=== PATIENT | male | born 1940 | race Caucasian/White ===

== ENCOUNTER 2022-04-27 23:32 | Inpatient (IN) ==
[2022-04-27] MEDS ORDERED: ACETAMINOPHEN 1,000 MG/100 ML BAG IV ONE (23:56)
[2022-04-27] MEDS ORDERED: IPRATROPIUM/ALBUTEROL 3 ML AMPUL.NEB NEB ONE (23:57)
[2022-04-28] MEDS ORDERED: CEFEPIME 2 GM VIAL IV ONE (00:14)
[2022-04-28] MEDS ORDERED: 0.9 % SODIUM CHLORIDE 500 ML IV ONE ×2 (00:14→02:02)
[2022-04-28] MEDS ORDERED: VANCOMYCIN 1,000 MG in 0.9 % SODIUM CHLORIDE 250 ML IV ONE (00:14)
[2022-04-28] MEDS: 0.9 % SODIUM CHLORIDE 250 ML ONE ×2 (00:25→00:38)
[2022-04-28 01:07] LABS: Basophils # (Auto) 0.03 K/mcL (0.00-0.30); Basophils % (Auto) 0.3 % (0.0-2.0); Eosinophils # (Auto) 0.05 K/mcL (0.00-0.70); Eosinophils % (Auto) 0.5 % (0.0-7.0); Hemoglobin 12.1 g/dL (13.7-17.5); Lymphocytes # (Auto) 0.71 K/mcL (1.50-4.80); Lymphocytes % (Auto) 7.6 % (15.5-49.0); Mean Cell Volume 90.3 fL (80.0-100.0); Mean Corpuscular HGB Conc 31.8 g/dL (31.0-36.0); Mean Platelet Volume 11.3 fL (8.8-12.5); Monocytes # (Auto) 0.71 K/mcL (0.10-0.90); Monocytes % (Auto) 7.6 % (1.0-12.0); Neutrophils % (Auto) 83.6 % (38.0-78.0); Platelet Count 173 K/mcL (140-440); RBC 4.21 M/mcL (4.63-6.08); Red Cell Distribution Width 14.6 % (11.5-14.5); WBC 9.3 K/mcL (4.5-11.0)
[2022-04-28 01:23] LABS: proBNP 516.1 pg/mL (<450.0)
[2022-04-28 01:52] LABS: ALT/SGPT 22 U/L (<40); AST/SGOT 31 U/L (<40); Albumin 3.8 gm/dL (3.2-5.2); Albumin/Globulin Ratio 1.1 (1.0-2.3); Alkaline Phosphatase 158 U/L (39-117); Bilirubin,Total 0.9 mg/dL (0.1-1.0); Blood Urea Nitrogen 52 mg/dL (8-23); Calcium 9.5 mg/dL (8.6-10.4); Carbon Dioxide 28 mmol/L (22-30); Chloride 93 mmol/L (96-108); Globulin 3.4 gm/dL (2.2-3.7); Glomerular Filtration Rate 40; Glucose 111 mg/dL (70-105)
[2022-04-28] MEDS ORDERED: VANCOMYCIN PER PHARMACY IV ONE (02:21)
[2022-04-28] MEDS ORDERED: ACETAMINOPHEN 325 MG TABLET PO PRN ×2 (02:22→09:12)
[2022-04-28] MEDS ORDERED: ONDANSETRON 4 MG/2 ML VIAL IV PRN ×2 (02:22→09:12)
[2022-04-28 02:23] LABS: POC INR 2.8 (0.8-1.2); POC Pro Time 31.5 (11.9-14.5)
[2022-04-28] MEDS ORDERED: IPRATROPIUM/ALBUTEROL 3 ML AMPUL.NEB NEB ONE (02:37)
[2022-04-28] MEDS: IPRATROPIUM/ALBUTEROL 3 ML AMPUL.NEB NEB SCH ×6 (05:26→23:50)
--- NOTE | 2022-04-28 06:34 | Emergency Department Note ---
Fever HPI General Chief Complaint: Fever Stated Complaint: SOB/fever Time Seen by Provider: 04/27/22 23:35 Source: patient and EMS Mode of arrival: EMS Limitations: no limitations History of Present Illness HPI Narrative: Narrative: 81-year-old male with a history of cardiomyopathy, COPD/asthma, A-fib presenting to the ED from [place] for shortness of breath wheezing and fever. Shortness of breath and wheezing started today, EMS reports he was hypoxic in the 80s with diffuse wheezing when they arrived, they gave him a DuoNeb which improved up into the 90s and was given 125 mg IV Solu-Medrol and brought to the ER. Patient says he has had mild URI symptoms for couple days as well. No chest pain. No abdominal pains or genitourinary symptoms. Always has a little bit of leg swelling he says but seems unchanged. He is on Coumadin as well. No other complaints says he does feel a bit better after the breathing treatments. He is not on home oxygen at baseline currently on 3 L nasal cannula Related Data Previous Rx's Medication Instructions Recorded Ventolin HFA 90 mcg/actuation 2 puff inhalation Q6H PRN 05/03/21 aerosol inhaler (albuterol sulfate) shortness of breath or wheezing #18 grams enalapril maleate 10 mg tablet 10 mg PO QDAY #90 tabs 07/15/21 furosemide 20 mg tablet 20 mg PO BID #180 tabs 09/16/21 tiotropium 2.5 mcg-olodaterol 2.5 2 puff inhalation Q24H #4 grams 09/18/21 mcg/actuation mist for inhalation (Stiolto Respimat) calcium carbonate 500 mg calcium 500 mg PO BID #180 tabs 11/05/21 (1,250 mg) tablet (Oyster Shell Calcium) ferrous sulfate 325 mg (65 mg 325 mg PO QDAY #90 tabs 11/07/21 iron) tablet (FeroSul) carvedilol 12.5 mg tablet (Coreg) 12.5 mg PO BID #180 tabs 11/12/21 quetiapine 25 mg tablet (Seroquel) 25 mg PO BID #180 tabs 11/21/21 warfarin 5 mg tablet 7.5 mg PO QDAY 90 days #135 tabs 01/07/22 sitagliptin phosphate 50 mg tablet 50 mg PO QDAY #90 tabs 02/06/22 (Januvia) citalopram 20 mg tablet (Celexa) 20 mg PO QDAY #90 tabs 03/04/22 atorvastatin 20 mg tablet (Lipitor) 20 mg PO QHS #90 tabs 03/13/22 allopurinol 100 mg tablet See Rx Instructions .Route 03/18/22 .COMPLEX #90 tabs ipratropium bromide 17 2 puff inhalation TID PRN 03/18/22 mcg/actuation HFA aerosol inhaler shortness of breath or wheezing (Atrovent HFA) #12.9 grams fluticasone propionate 100 1 inh inhalation BID #60 ea 04/01/22 mcg/actuation blister powder for inhalation (Flovent Diskus) warfarin 2.5 mg tablet 2.5 mg PO .COMPLEX #90 tabs 04/08/22 acetaminophen 500 mg tablet 500 mg PO Q6H PRN for pain #30 tabs 04/17/22 Allergies Allergy/AdvReac Type Severity Reaction Status Date / Time No Known Drug Allergies Allergy Verified 04/28/22 03:36 Review of Systems ROS ROS Narrative: Narrative: All systems ED: reviewed and negative except as stated. PFSH Narrative Patient History Narrative: Narrative: Medical/Surgical/Family History All Active Problems Pneumonia (Acute) Fever (Acute) Acute exacerbation of chronic obstructive pulmonary disease (Acute) COPD (chronic obstructive pulmonary disease) (Acute) correction current use of anticoagulant therapy (Chronic) Aspiration pneumonitis (Chronic) Atrial fibrillation (Chronic) Cardiomyopathy, primary (Chronic) Cataract (Chronic) Cellulitis and abscess of toe (Chronic 04/12/14) Hx of gout (Chronic) Gouty arthropathy (Chronic) Fracture, humerus closed (Chronic) Hyperlipidemia (Chronic) Hyperplasia of prostate (Chronic) Hypertension, essential, benign (Chronic) Onychomycosis (Chronic) Hx of adenoidectomy (Acute) History of surgery on arm (Acute) Hx of tonsillectomy (Acute) Hx of hernia repair (Acute) Chronic pain of left knee (Chronic) Diabetic foot ulcer (Chronic) 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) 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) Diabetic neuropathy (Chronic) Pes planus (Chronic) Hallux valgus (Chronic) Hallux rigidus of right foot (Chronic) Hammertoe (Chronic) Acquired deformity of left toe (Chronic) Skin fissure (Chronic) 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) Foot callus (Chronic) Onychomycosis of toenail (Chronic) Hypertension (Chronic) Congestive heart failure (Chronic) Cardiomyopathy (Chronic) Depression (Chronic) Knee pain, right (Chronic) Neurogenic bladder (Acute) Bladder incontinence (Acute) Facial rash (Chronic) Chronic skin ulcer (Chronic) Bilateral knee pain (Chronic) Elevated erythrocyte sedimentation rate (Chronic) High risk medication use (Chronic) Encounter for long-term (current) use of high-risk medication (Chronic) Osteoarthritis (Acute) MGUS (monoclonal gammopathy of unknown significance) (Chronic) Hyperphosphatemia (Acute) Edema (Chronic) Hypertension in stage 3 chronic kidney disease due to type 2 diabetes mellitus (Chronic) Localized edema due to fluid overload (Chronic) Medicare annual wellness visit, initial (Acute) BPH associated with nocturia (Acute) Annual physical exam (Acute) Dyspnea (Acute) Chronic kidney disease (CKD) stage G3b/A2, moderately decreased glomerular filtration rate (GFR) between 30-44 mL/min/1.73 square meter and albuminuria creatinine ratio between 30-299 mg/g (Chronic) 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) Medical History Acquired deformity of left toe Annual physical exam Aspiration pneumonitis Atrial fibrillation Bilateral knee pain Bladder incontinence BPH associated with nocturia Cardiomyopathy Cardiomyopathy, primary ETOH caused Cataract Cellulitis and abscess of toe (04/12/14) Chronic pain of left knee Chronic skin ulcer Congestive heart failure Depression Diabetes Diabetes insipidus Diabetes mellitus with neurological manifestations Diabetes mellitus, type II Diabetic foot ulcer Toe Diabetic neuropathy DM (diabetes mellitus), type 2 with renal complications Dyspnea Elevated erythrocyte sedimentation rate Encounter for long-term (current) use of high-risk medication Facial rash Foot callus Bilateral Fracture, humerus closed L Gouty arthropathy Hallux rigidus of right foot Hallux valgus Hammertoe High risk medication use Hx of gout Hyperlipidemia Hyperplasia of prostate Hypertension Hypertension, essential, benign 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 Wood Onychomycosis of toenail Osteoarthritis Pes planus Renal cysts, acquired, bilateral Per renal ultrasound 07/02/2015 Skin fissure Type II diabetes mellitus with renal manifestations Surgical History History of amputation of lesser toe of right foot History of mastoidectomy History of surgery on arm Left-elbow/bicept/tricept Hx of adenoidectomy Hx of hernia repair L Hx of tonsillectomy Family History Father Multiple myeloma at 80y Malignant neoplasm Mother Coronary artery disease at 85 y Cardiac disease Essential hypertension Cerebrovascular accident (CVA) Brother Hypertension Congestive heart failure Sister Tachycardia Brother Diabetes insipidus Other Diabetes mellitus Social History Smoking Status: Never smoker Alcohol Intake Frequency: former alcohol drinker Substance Use: does not use Exam Narrative Narrative: Narrative: Constitutional: normally developed, a bit labored, requiring nasal cannula slight tachycardia Head: Normocephalic, atraumatic, Eyes: No Icterus, ENT: Moist mucus membranes, normal oropharynx slightly boggy turbinates Neck: Supple, no meningismus Cardiac: Tachycardic irregular heart sounds, palpable peripheral pulses, trace equal peripheral edema Pulmonary: diminished bilateral crackles and wheeze Gastrointestinal: Abdomen soft, non-distended, non-tender, Musculoskeletal: No gross deformities, well perfused Skin: warm, dry Neuro: Alert and oriented. General Limitations: no limitations Course Vital Signs Vital signs: Vital Signs Temperature 38.8 C H 04/27/22 23:33 Pulse Rate 98 H 04/27/22 23:33 Respiratory Rate 24 H 04/27/22 23:33 Blood Pressure 132/75 04/27/22 23:33 Pulse Oximetry (%) 93 04/27/22 23:33 Oxygen Delivery Method Nasal Cannula 04/27/22 23:33 Temperature 36.8 C 04/28/22 04:00 Pulse Rate 111 H 04/28/22 04:00 Respiratory Rate 20 04/28/22 04:00 Blood Pressure 126/75 04/28/22 04:00 Pulse Oximetry (%) 95 04/28/22 04:00 Oxygen Delivery Method Nasal Cannula 04/28/22 04:00 Oxygen Flow Rate (L/min) 2 04/28/22 04:00 [facility] MDM Narrative Medical decision making narrative: Narrative: Patient presents as above shortness of breath fevers and wheezing hypoxic at [facility]. Work-up is initiated. Consideration for pneumonia, pneumothorax, viral illness/pneumonia, bacterial infection/pneumonia, sepsis, COPD/asthma exacerbation, ACS, less likely PE or dissection. Patient given some further DuoNebs. Given IV Tylenol for fever. And further DuoNeb we started to give him slow judicious fluids for SIRS criteria given his history of cardiomyopathy CHF. Chest x-ray per my preliminary interpretation appears to show left lower opacity versus effusion Patient was covered with broad-spectrum antibiotics out of concern for pneumonia Vanc, cefepime CBC no leukocytosis, no severe anemia POC INR 2.8 on Coumadin Blood gas with no significant only mild hypercapnia pH 7.38 PCO2 of 51 PO2 on the venous gas 35 Lactic acid normal 1.1 Electrolytes with baseline CKD BNP mildly elevated 516 Troponin negative Twelve-lead EKG appears to show his known A-fib heart rate 88 no evidence of STEMI criteria, right bundle branch block pattern, no prior EKG for comparison COVID and flu negative Reevaluation patient is feeling better, we did slowly give him a total of 1 L IV fluids we will hold off on further fluids given his elevated BNP and history of cardiomyopathy and the fact his blood pressure is stable, heart rate is right around 100. Fever resolved is feeling better, he is weaned down to 1 to 2 L of nasal cannula. Still suspect possibly pneumonia viral versus bacterial, COPD exacerbation. Spoke with Dr. SAENZ who accepts the patient for telemetry admission. Did also add on Procal in the meantime Lab Data 04/28/22 00:07 04/28/22 00:03 Labs: Lab Results 04/28/22 04/28/22 04/28/22 Range/Units 00:03 00:03 00:05 WBC (4.5-11.0) K/mcL RBC (4.63-6.08) M/mcL Hgb (13.7-17.5) g/dL Hct (40.1-51.0) % MCV (80.0-100.0) fL MCH (26.0-34.0) pg MCHC (31.0-36.0) g/dL RDW (11.5-14.5) % Plt Count (140-440) K/mcL MPV (8.8-12.5) fL Immature Gran % (Auto) (0.0-0.5) % Neut % (Auto) (38.0-78.0) % Lymph % (Auto) (15.5-49.0) % [place] % (Auto) (1.0-12.0) % Eos % (Auto) (0.0-7.0) % Baso % (Auto) (0.0-2.0) % Lymph # (Auto) (1.50-4.80) K/mcL [place] # (Auto) (0.10-0.90) K/mcL Eos # (Auto) (0.00-0.70) K/mcL Baso # (Auto) (0.00-0.30) K/mcL Immature Gran # (0.00-0.05) K/mcl Absolute Neutrophils (1.80-8.00) K/mcL POC PT (11.9-14.5) POC INR (0.8-1.2) POC VBG pH (7.32-7.42) POC VBG pCO2 at Temp (41-51) POC VBG pO2 (25-40) POC VBG HCO3 (24-28) POC VBG Total CO2 (25-29) POC Venous O2 Sat (40-70) POC VBG Base Excess (-2-2) VBG Lactic Acid (0.5-2) Sodium 132 L (133-145) mmol/L Potassium 4.7 (3.3-5.1) mmol/L Chloride 93 L (96-108) mmol/L Carbon Dioxide 28 (22-30) mmol/L Anion Gap 11.0 (8.0-16.0) BUN 52 H (8-23) mg/dL Creatinine 1.6 H (0.7-1.2) mg/dL GFR Calculation 40 Glucose 111 H (70-105) mg/dL Calcium 9.5 (8.6-10.4) mg/dL Total Bilirubin 0.9 (0.1-1.0) mg/dL AST 31 (<40) U/L ALT 22 (<40) U/L Alkaline Phosphatase 158 H (39-117) U/L NT-Pro-B Natriuret Pep 516.1 H (<450.0) pg/mL Total Protein 7.2 (5.9-8.4) gm/dL Albumin 3.8 (3.2-5.2) gm/dL Globulin 3.4 (2.2-3.7) gm/dL Albumin/Globulin Ratio 1.1 (1.0-2.3) Procalcitonin (<0.10) ng/mL POC Troponin I 0.04 (0.00-0.08) 04/28/22 04/28/22 04/28/22 Range/Units 00:07 00:07 02:18 WBC 9.3 (4.5-11.0) K/mcL RBC 4.21 L (4.63-6.08) M/mcL Hgb 12.1 L (13.7-17.5) g/dL Hct 38.0 L (40.1-51.0) % MCV 90.3 (80.0-100.0) fL MCH 28.7 (26.0-34.0) pg MCHC 31.8 (31.0-36.0) g/dL RDW 14.6 H (11.5-14.5) % Plt Count 173 (140-440) K/mcL MPV 11.3 (8.8-12.5) fL Immature Gran % (Auto) 0.4 (0.0-0.5) % Neut % (Auto) 83.6 H (38.0-78.0) % Lymph % (Auto) 7.6 L (15.5-49.0) % [place] % (Auto) 7.6 (1.0-12.0) % Eos % (Auto) 0.5 (0.0-7.0) % Baso % (Auto) 0.3 (0.0-2.0) % Lymph # (Auto) 0.71 L (1.50-4.80) K/mcL [place] # (Auto) 0.71 (0.10-0.90) K/mcL Eos # (Auto) 0.05 (0.00-0.70) K/mcL Baso # (Auto) 0.03 (0.00-0.30) K/mcL Immature Gran # 0.04 (0.00-0.05) K/mcl Absolute Neutrophils 7.77 (1.80-8.00) K/mcL POC PT 31.5 H (11.9-14.5) POC INR 2.8 H (0.8-1.2) POC VBG pH 7.38 (7.32-7.42) POC VBG pCO2 at Temp 51.3 H (41-51) POC VBG pO2 35 (25-40) POC VBG HCO3 30.7 H (24-28) POC VBG Total CO2 32.0 H (25-29) POC Venous O2 Sat 65.0 (40-70) POC VBG Base Excess 6.0 H* (-2-2) VBG Lactic Acid 1.1 (0.5-2) Sodium (133-145) mmol/L Potassium (3.3-5.1) mmol/L Chloride (96-108) mmol/L Carbon Dioxide (22-30) mmol/L Anion Gap (8.0-16.0) BUN (8-23) mg/dL Creatinine (0.7-1.2) mg/dL GFR Calculation Glucose (70-105) mg/dL Calcium (8.6-10.4) mg/dL Total Bilirubin (0.1-1.0) mg/dL AST (<40) U/L ALT (<40) U/L Alkaline Phosphatase (39-117) U/L NT-Pro-B Natriuret Pep (<450.0) pg/mL Total Protein (5.9-8.4) gm/dL Albumin (3.2-5.2) gm/dL Globulin (2.2-3.7) gm/dL Albumin/Globulin Ratio (1.0-2.3) Procalcitonin (<0.10) ng/mL POC Troponin I (0.00-0.08) 04/28/22 Range/Units 02:23 WBC (4.5-11.0) K/mcL RBC (4.63-6.08) M/mcL Hgb (13.7-17.5) g/dL Hct (40.1-51.0) % MCV (80.0-100.0) fL MCH (26.0-34.0) pg MCHC (31.0-36.0) g/dL RDW (11.5-14.5) % Plt Count (140-440) K/mcL MPV (8.8-12.5) fL Immature Gran % (Auto) (0.0-0.5) % Neut % (Auto) (38.0-78.0) % Lymph % (Auto) (15.5-49.0) % [place] % (Auto) (1.0-12.0) % Eos % (Auto) (0.0-7.0) % Baso % (Auto) (0.0-2.0) % Lymph # (Auto) (1.50-4.80) K/mcL [place] # (Auto) (0.10-0.90) K/mcL Eos # (Auto) (0.00-0.70) K/mcL Baso # (Auto) (0.00-0.30) K/mcL Immature Gran # (0.00-0.05) K/mcl Absolute Neutrophils (1.80-8.00) K/mcL POC PT (11.9-14.5) POC INR (0.8-1.2) POC VBG pH (7.32-7.42) POC VBG pCO2 at Temp (41-51) POC VBG pO2 (25-40) POC VBG HCO3 (24-28) POC VBG Total CO2 (25-29) POC Venous O2 Sat (40-70) POC VBG Base Excess (-2-2) VBG Lactic Acid (0.5-2) Sodium (133-145) mmol/L Potassium (3.3-5.1) mmol/L Chloride (96-108) mmol/L Carbon Dioxide (22-30) mmol/L Anion Gap (8.0-16.0) BUN (8-23) mg/dL Creatinine (0.7-1.2) mg/dL GFR Calculation Glucose (70-105) mg/dL Calcium (8.6-10.4) mg/dL Total Bilirubin (0.1-1.0) mg/dL AST (<40) U/L ALT (<40) U/L Alkaline Phosphatase (39-117) U/L NT-Pro-B Natriuret Pep (<450.0) pg/mL Total Protein (5.9-8.4) gm/dL Albumin (3.2-5.2) gm/dL Globulin (2.2-3.7) gm/dL Albumin/Globulin Ratio (1.0-2.3) Procalcitonin 0.08 (<0.10) ng/mL POC Troponin I (0.00-0.08) ED POC Tests ED POC Tests: [place] - Influenza A Negative [place] - Influenza B Negative [place] - SARS Antigen Negative Discharge Plan Patient/Caregiver Discharge Instructions 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
--- NOTE | 2022-04-28 07:45 | XRay Report ---
HISTORY: Short of breath, fever, COPD FINDINGS: Right diaphragm is moderately elevated. This is a chronic stable finding of undetermined etiology. There is no apparent lung or mediastinal mass. There is a generalized haziness in the lung parenchyma bilaterally. Some of this may be due to crowding of normal pulmonary vascular markings. Pulmonary vascular congestion is less likely. There is a vague infiltrate in the left lower lobe behind the left heart border which is new since 07/17/20. There might be a small left-sided pleural effusion. Heart size is within upper limits of normal. IMPRESSION: Mild atelectasis or pneumonia in the left lower lobe Interpreted and Authenticated by: Sarmad Mullins 04/28/22
[2022-04-28] MEDS ORDERED: CEFEPIME 2 GM VIAL IV SCH (08:00)
[2022-04-28] MEDS ORDERED: ACETAMINOPHEN 500 MG TABLET PO PRN (09:08)
[2022-04-28] MEDS ORDERED: ALBUTEROL SULFATE 60 PUFF INHALER INH PRN (09:08)
[2022-04-28] MEDS ORDERED: traZODone HCL 50 MG TABLET PO PRN (09:12)
[2022-04-28] MEDS ORDERED: DEXTROSE 50% 50 ML VIAL IV PRN ×2 (09:12→09:18)
[2022-04-28] MEDS ORDERED: DEXTROSE 31 GM ORAL.SUSP PO PRN ×2 (09:12→09:18)
[2022-04-28] MEDS ORDERED: WARFARIN 2.5 MG TABLET PO SCH (09:15)
[2022-04-28] MEDS ORDERED: cefTRIAXone 1 GM in DEXTROSE 5% IN WATER 50 ML IV SCH (09:15)
[2022-04-28] MEDS ORDERED: guaiFENesin/DEXTROMETHORPHAN 5ML UD CUP PO PRN (09:22)
[2022-04-28] MEDS ORDERED: IPRATROPIUM BROMIDE 17 MCG INH PRN (09:27)
--- NOTE | 2022-04-28 09:30 | Internal Med History&Physical ---
HPI History of Present Illness Patient information: Note initiated : 04/28/22 at 9:18 am Service Date, if different from initiated Date: [] Patient: Shamar Vila 81 y/o M admitted on 04/28/22 for SOB/fever. Chief Complaint: [shortness of breath, cough] Chief complaint: shortness of breath, cough History of present illness: Mr. Vila is a 81 year old M history of gout, COPD, type 2 diabetes mellitus, chronic kidney disease stage III, essential hypertension, mixed dyslipidemia, atrial fibrillation, depressions, cardiomyopathy, presenting with 1 day history of new onset shortness of breath with cough. There was no prior similar episode. Patient is assisted living facility [facility] is state resident. Yesterday morning he woke up with acute onset shortness of breath. He is also complaining of productive cough. He is complaining of the respiratory wheezings. He denies any fever, chills, or diaphoresis. He denies any change in appetite. He denies any general body weakness. He denies any GI upset such as nausea vomiting. He does not use oxygen at home facility. Vital signs at ED presentation significant for fever with Tmax 38.1. Heart rate up to the 1 teens beats per minutes. He was started on supplemental nasal cannula oxygen up to 2 L/min. COVID screening negative. Labs otherwise significant for lack of leukocytosis with WBC 9.3. Serum lactic acid 1.1. Procalcitonin level is 0.08. Chest x-ray showing left lower lobe pneumonia versus atelectasis. Admission request is called for COPD exacerbations plus or minus community acquired pneumonia. Constitutional Constitutional: Absent chills, excessive sweating, fatigue, fever(s) or weakness EENT Eyes: Absent blurry vision, change in vision, loss of vision or other visual disturbances Ears: Absent decreased hearing or tinnitus Nose, mouth and throat: Absent abnormal hearing, dry mouth, headache(s), nasal congestion or sore throat Cardiovascular Cardiovascular: Absent chest pain, chest pain at rest, edema, irregular heart rhythm or palpatations Respiratory Respiratory: Present cough, dyspnea, wheezing and excessive phlegm production Gastrointestinal Gastrointestinal: Absent abdominal pain, constipation, diarrhea, nausea or vomiting Musculoskeletal Musculoskeletal: Absent back pain, deformity, limited range of motion, muscle cramps, muscle weakness or numbness Integumentary Integumentary: Absent lesions, rash or wounds Neurological Neurological: Absent focal weakness, headache(s) or numbness Psychiatric Psychiatric: Absent anxiety, depression or hallucinations PFSH PFSH All Active Problems Pneumonia (Acute) Fever (Acute) Acute exacerbation of chronic obstructive pulmonary disease (Acute) COPD (chronic obstructive pulmonary disease) (Acute) 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) Aspiration pneumonitis (Chronic) Atrial fibrillation (Chronic) Cardiomyopathy, primary (Chronic) Cataract (Chronic) Cellulitis and abscess of toe (Chronic 04/12/14) Hx of gout (Chronic) Gouty arthropathy (Chronic) Fracture, humerus closed (Chronic) Hyperlipidemia (Chronic) Hyperplasia of prostate (Chronic) Hypertension, essential, benign (Chronic) Onychomycosis (Chronic) Hx of adenoidectomy (Acute) History of surgery on arm (Acute) Hx of tonsillectomy (Acute) Hx of hernia repair (Acute) Chronic pain of left knee (Chronic) Diabetic foot ulcer (Chronic) 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) 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) Diabetic neuropathy (Chronic) Pes planus (Chronic) Hallux valgus (Chronic) Hallux rigidus of right foot (Chronic) Hammertoe (Chronic) Acquired deformity of left toe (Chronic) Skin fissure (Chronic) 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) Foot callus (Chronic) Onychomycosis of toenail (Chronic) Hypertension (Chronic) Congestive heart failure (Chronic) Cardiomyopathy (Chronic) Depression (Chronic) Knee pain, right (Chronic) Neurogenic bladder (Acute) Bladder incontinence (Acute) Facial rash (Chronic) Chronic skin ulcer (Chronic) Bilateral knee pain (Chronic) Elevated erythrocyte sedimentation rate (Chronic) High risk medication use (Chronic) Encounter for long-term (current) use of high-risk medication (Chronic) Osteoarthritis (Acute) MGUS (monoclonal gammopathy of unknown significance) (Chronic) Hyperphosphatemia (Acute) Edema (Chronic) Hypertension in stage 3 chronic kidney disease due to type 2 diabetes mellitus (Chronic) Localized edema due to fluid overload (Chronic) Medicare annual wellness visit, initial (Acute) BPH associated with nocturia (Acute) Annual physical exam (Acute) Dyspnea (Acute) Chronic kidney disease (CKD) stage G3b/A2, moderately decreased glomerular filtration rate (GFR) between 30-44 mL/min/1.73 square meter and albuminuria creatinine ratio between 30-299 mg/g (Chronic) 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) Medical History Acquired deformity of left toe Annual physical exam Aspiration pneumonitis Atrial fibrillation Bilateral knee pain Bladder incontinence BPH associated with nocturia Cardiomyopathy Cardiomyopathy, primary ETOH caused Cataract Cellulitis and abscess of toe (04/12/14) Chronic pain of left knee Chronic skin ulcer Congestive heart failure Depression Diabetes Diabetes insipidus Diabetes mellitus with neurological manifestations Diabetes mellitus, type II Diabetic foot ulcer Toe Diabetic neuropathy DM (diabetes mellitus), type 2 with renal complications Dyspnea Elevated erythrocyte sedimentation rate Encounter for long-term (current) use of high-risk medication Facial rash Foot callus Bilateral Fracture, humerus closed L Gouty arthropathy Hallux rigidus of right foot Hallux valgus Hammertoe High risk medication use Hx of gout Hyperlipidemia Hyperplasia of prostate Hypertension Hypertension, essential, benign Knee pain, right retirement current use of 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 Wood Onychomycosis of toenail Osteoarthritis Pes planus Renal cysts, acquired, bilateral Per renal ultrasound 07/02/2015 Skin fissure Type II diabetes mellitus with renal manifestations Surgical History History of amputation of lesser toe of right foot History of mastoidectomy History of surgery on arm Left-elbow/bicept/tricept Hx of adenoidectomy Hx of hernia repair L Hx of tonsillectomy Family History Father Multiple myeloma at 80y Malignant neoplasm Mother Coronary artery disease at 85 y Cardiac disease Essential hypertension Cerebrovascular accident (CVA) Brother Hypertension Congestive heart failure Sister Tachycardia Brother Diabetes insipidus Other Diabetes mellitus Social History housing: assisted living facility marital status: single occupational status: retired physical activity: walking smoking status: Never smoker alcohol intake frequency: former alcohol drinker substance use type: does not use MEDS/ALLERGIES Home Medications and Allergies Home Medications Medication Instructions Recorded Confirmed Type enalapril maleate 10 mg tablet 10 mg PO QDAY #90 tabs 07/15/21 04/28/22 Rx furosemide 20 mg tablet 20 mg PO BID #180 tabs 09/16/21 04/01/22 Rx tiotropium 2.5 mcg-olodaterol 2.5 2 puff inhalation Q24H #4 grams 09/18/21 04/28/22 Rx mcg/actuation mist for inhalation (Stiolto Respimat) calcium carbonate 500 mg calcium 500 mg PO BID #180 tabs 11/05/21 04/28/22 Rx (1,250 mg) tablet (Oyster Shell Calcium) ferrous sulfate 325 mg (65 mg 325 mg PO QDAY #90 tabs 11/07/21 04/28/22 Rx iron) tablet (FeroSul) quetiapine 25 mg tablet (Seroquel) 25 mg PO BID #180 tabs 11/21/21 04/28/22 Rx warfarin 5 mg tablet 7.5 mg PO QDAY 90 days #135 tabs 01/07/22 04/28/22 Rx sitagliptin phosphate 50 mg tablet 50 mg PO QDAY #90 tabs 02/06/22 04/28/22 Rx (Januvia) citalopram 20 mg tablet (Celexa) 20 mg PO QDAY #90 tabs 03/04/22 04/28/22 Rx atorvastatin 20 mg tablet (Lipitor) 20 mg PO QHS #90 tabs 03/13/22 04/28/22 Rx fluticasone propionate 100 1 inh inhalation BID #60 ea 04/01/22 04/28/22 Rx mcg/actuation blister powder for inhalation (Flovent Diskus) warfarin 2.5 mg tablet 2.5 mg PO .COMPLEX #90 tabs 04/08/22 04/28/22 Rx acetaminophen 500 mg tablet 500 mg PO Q6H PRN for pain #30 tabs 04/17/22 04/28/22 Rx albuterol sulfate 90 mcg/actuation 2 puff inhalation Q6HP PRN 04/28/22 04/28/22 History aerosol inhaler (Ventolin HFA) shortness of breath or wheezing allopurinol 100 mg tablet 100 mg PO HS 04/28/22 04/28/22 History allopurinol 100 mg tablet 200 mg PO QDAY 04/28/22 04/28/22 History carvedilol 12.5 mg tablet (Coreg) 12.5 mg PO BIDCC 04/28/22 History ipratropium bromide 17 2 puff inhalation TIDP PRN 04/28/22 04/28/22 History mcg/actuation HFA aerosol inhaler shortness of breath or wheezing (Atrovent HFA) Allergies Allergy/AdvReac Type Severity Reaction Status Date / Time No Known Drug Allergies Allergy Verified 04/28/22 03:36 EXAM Constitutional Vitals: Temp Pulse Resp BP Pulse Ox O2 Del Method O2 Flow Rate 36.4 C 86 20 118/79 99 Nasal Cannula 1 04/28/22 07:52 04/28/22 07:52 04/28/22 07:52 04/28/22 07:52 04/28/22 07:52 04/28/22 08:00 04/28/22 08:00 General appearance: cooperative and no acute distress Head Head exam: Present atraumatic and normocephalic Eye Eye exam: Present EOMI and PERRL ENT ENT exam: Present mucous membranes moist, normal exam and normal external ear exam Additional comments: Nasal cannula in place Neck Neck exam: Present normal inspection; Absent lymphadenopathy, tenderness or thyromegaly Respiratory Respiratory exam: Present decreased breath sounds and wheezes; Absent accessory muscle use or respiratory distress Cardiovascular Cardiovascular exam: Present irregular rhythm; Absent JVD GI/Abdominal GI/Abdominal exam: Present normal bowel sounds and soft; Absent organomegaly or tenderness Rectal Rectal exam: Present deferred Extremities Exam Extremities exam: Present full ROM, normal capillary refill and normal inspection; Absent tenderness Neurological Exam Neurological exam: Present alert, CN II-XII intact and oriented X3; Absent motor sensory deficit Psychiatric Psychiatric exam: Present normal affect and normal mood; Absent anxious or depressed Skin Skin exam: Present dry and intact DATA Data Completed and Pending Labs: Labs from last 24 hours 04/28/22 04/28/22 04/28/22 02: 02:18 00:07 WBC RBC Hgb Hct MCV MCH MCHC RDW Plt Count MPV Immature Gran % (Auto) Neut % (Auto) Lymph % (Auto) Henderson % (Auto) Eos % (Auto) Baso % (Auto) Lymph # (Auto) Henderson # (Auto) Eos # (Auto) Baso # (Auto) Immature Gran # Absolute Neutrophils POC PT 31.5 H POC INR 2.8 H POC VBG pH 7.38 POC VBG pCO2 at Temp 51.3 H POC VBG pO2 35 POC VBG HCO3 30.7 H POC VBG Total CO2 32.0 H POC Venous O2 Sat 65.0 POC VBG Base Excess 6.0 H* VBG Lactic Acid 1.1 Sodium Potassium Chloride Carbon Dioxide Anion Gap BUN Creatinine GFR Calculation Glucose Calcium Total Bilirubin AST ALT Alkaline Phosphatase NT-Pro-B Natriuret Pep Total Protein Albumin Globulin Albumin/Globulin Ratio Procalcitonin 0.08 POC Troponin I 04/28/22 04/28/22 04/28/22 00:07 00:05 00:03 WBC 9.3 RBC 4.21 L Hgb 12.1 L Hct 38.0 L MCV 90.3 MCH 28.7 MCHC 31.8 RDW 14.6 H Plt Count 173 MPV 11.3 Immature Gran % (Auto) 0.4 Neut % (Auto) 83.6 H Lymph % (Auto) 7.6 L Henderson % (Auto) 7.6 Eos % (Auto) 0.5 Baso % (Auto) 0.3 Lymph # (Auto) 0.71 L Henderson # (Auto) 0.71 Eos # (Auto) 0.05 Baso # (Auto) 0.03 Immature Gran # 0.04 Absolute Neutrophils 7.77 POC PT POC INR POC VBG pH POC VBG pCO2 at Temp POC VBG pO2 POC VBG HCO3 POC VBG Total CO2 POC Venous O2 Sat POC VBG Base Excess VBG Lactic Acid Sodium Potassium Chloride Carbon Dioxide Anion Gap BUN Creatinine GFR Calculation Glucose Calcium Total Bilirubin AST ALT Alkaline Phosphatase NT-Pro-B Natriuret Pep 516.1 H Total Protein Albumin Globulin Albumin/Globulin Ratio Procalcitonin POC Troponin I 0.04 04/28/22 00:03 WBC RBC Hgb Hct MCV MCH MCHC RDW Plt Count MPV Immature Gran % (Auto) Neut % (Auto) Lymph % (Auto) Henderson % (Auto) Eos % (Auto) Baso % (Auto) Lymph # (Auto) Henderson # (Auto) Eos # (Auto) Baso # (Auto) Immature Gran # Absolute Neutrophils POC PT POC INR POC VBG pH POC VBG pCO2 at Temp POC VBG pO2 POC VBG HCO3 POC VBG Total CO2 POC Venous O2 Sat POC VBG Base Excess VBG Lactic Acid Sodium 132 L Potassium 4.7 Chloride 93 L Carbon Dioxide 28 Anion Gap 11.0 BUN 52 H Creatinine 1.6 H GFR Calculation 40 Glucose 111 H Calcium 9.5 Total Bilirubin 0.9 AST 31 ALT 22 Alkaline Phosphatase 158 H NT-Pro-B Natriuret Pep Total Protein 7.2 Albumin 3.8 Globulin 3.4 Albumin/Globulin Ratio 1.1 Procalcitonin POC Troponin I A/P Assessment and plan (1) Pneumonia: Status: Acute (2) Acute exacerbation of chronic obstructive pulmonary disease: Status: Acute (3) Atrial fibrillation: Status: Chronic Qualifiers: Atrial fibrillation type: unspecified Qualified Code(s): I48.91 - Unspecified atrial fibrillation (4) Gouty arthropathy: Status: Chronic (5) Hyperlipidemia: Status: Chronic (6) Hypertension, essential, benign: Status: Chronic (7) Type II diabetes mellitus with renal manifestations: Status: Chronic (8) Cardiomyopathy: Status: Chronic (9) Depression: Status: Chronic (10) Hypertension in stage 3 chronic kidney disease due to type 2 diabetes mellitus: Status: Chronic (11) Anemia due to stage 3b chronic kidney disease: Status: Chronic Narrative A/P Narrative: Assessment and Plans: 1. COPD with exacerbation: Inpatient med surg telemetry Supplemental oxygen therapy, titrate to achieve spo2>88-92% Prednisone Zithromax DuoNEB Montelukast Robitussin DM Physical therapy 2. Community acquired pneumonia: Blood culture Serial lactic acid Procalcitonin level cbc w/ auto diff in the morning to trend WBC Rocephin Zithromax Robitussin DM 3. Gout: Allopurinol 4. T2DM: HgA1c Hold oral hypoglycemics Insulin Lispro SSI AC HS Accu Check [facility] Hypoglycemia protocol Diabetic diet 5. Chronic kidney disease III: Avoid nephrotoxic agents Saline lock CMP in the morning to trend kidney functions 6. Essential hypertension: Currently normotensives Continue home regimen of oral antihypertensives 7. Mixed dyslipidemia: Continue statin therapy 8. Permanent atrial fibrillation: Daily INR, goal 2-3 Warfarin Coreg 9. Depression: Citalopram Seroquel GI ppx: not currently indicated DVT ppx: Warfarin Code status: Full Prognosis: guarded Disposition: inpatient med surg tele Time Spent With Patient Time: Total time spent is greater than 50% in coordination of care (as documented) at patient's floor/unit and/or counseling patient: Initial: Total time with patient: 55 - 74 minutes
[2022-04-28] MEDS: cefTRIAXone 1 GM VIAL IV SCH (09:58)
[2022-04-28] MEDS: predniSONE 20 MG TABLET PO SCH (09:58)
[2022-04-28] MEDS: Tiotropium-Olodaterol [Stiolto Respimat] 2.5-2.5 mcg Inhaler INH SCH (10:29)
[2022-04-28] MEDS: AZITHROMYCIN 500 MG in DEXTROSE 5% IN WATER 250 ML IV SCH (11:31)
[2022-04-28] MEDS: INSULIN LISPRO 1 UNIT/0.01 ML UNIT SQ SCH ×3 (11:32→21:27)
[2022-04-28] MEDS ORDERED: WARFARIN 3 MG TABLET PO SCH (14:00)
[2022-04-28] MEDS: 0.9 % SODIUM CHLORIDE 10 ML SYRINGE IV SCH ×2 (14:53→21:26)
[2022-04-28] MEDS: CARVEDILOL 12.5 MG TABLET PO SCH (17:50)
[2022-04-28] MEDS: DOCUSATE SODIUM 100 MG CAPSULE PO SCH (21:26)
[2022-04-28] MEDS: QUEtiapine 25 MG TABLET PO SCH (21:26)
[2022-04-28] MEDS: FUROSEMIDE 20 MG TABLET PO SCH (21:26)
[2022-04-28] MEDS: ATORVASTATIN 20 MG TABLET PO SCH (21:26)
[2022-04-28] MEDS: CALCIUM (OYSTER SHELL) 500 MG TABLET PO SCH (21:26)
[2022-04-28] MEDS: SENNOSIDES 1 TABLET PO SCH (21:26)
[2022-04-28] MEDS: ALLOPURINOL 100 MG TABLET PO SCH (21:27)
[2022-04-28] MEDS: FLUTICASONE PROPIONATE 100 MCG INH SCH (21:41)
[2022-04-29] MEDS: IPRATROPIUM/ALBUTEROL 3 ML AMPUL.NEB NEB SCH ×7 (00:01→23:03)
[2022-04-29] MEDS: 0.9 % SODIUM CHLORIDE 10 ML SYRINGE IV SCH ×3 (04:05→21:01)
[2022-04-29 07:20] LABS: Basophils # (Auto) 0.01 K/mcL (0.00-0.30); Basophils % (Auto) 0.1 % (0.0-2.0); Eosinophils # (Auto) 0 K/mcL (0.00-0.70); Eosinophils % (Auto) 0 % (0.0-7.0); Hematocrit 33.8 % (40.1-51.0); Hemoglobin 10.9 g/dL (13.7-17.5); Lymphocytes # (Auto) 0.66 K/mcL (1.50-4.80); Lymphocytes % (Auto) 5.9 % (15.5-49.0); Mean Cell Volume 89.4 fL (80.0-100.0); Mean Corpuscular HGB Conc 32.2 g/dL (31.0-36.0); Mean Platelet Volume 11.5 fL (8.8-12.5); Monocytes # (Auto) 0.48 K/mcL (0.10-0.90); Monocytes % (Auto) 4.3 % (1.0-12.0); Neutrophils % (Auto) 89.3 % (38.0-78.0); Platelet Count 146 K/mcL (140-440); RBC 3.78 M/mcL (4.63-6.08); Red Cell Distribution Width 14.5 % (11.5-14.5); WBC 11.2 K/mcL (4.5-11.0)
[2022-04-29 07:33] LABS: Estimated Average Glucose(eAG) 126 mg/dL
[2022-04-29 07:41] LABS: ALT/SGPT 19 U/L (<40); AST/SGOT 30 U/L (<40); Albumin 3.4 gm/dL (3.2-5.2); Albumin/Globulin Ratio 1.1 (1.0-2.3); Alkaline Phosphatase 120 U/L (39-117); Bilirubin,Total 0.7 mg/dL (0.1-1.0); Blood Urea Nitrogen 52 mg/dL (8-23); Calcium 8.5 mg/dL (8.6-10.4); Carbon Dioxide 27 mmol/L (22-30); Chloride 92 mmol/L (96-108); Globulin 3.1 gm/dL (2.2-3.7); Glomerular Filtration Rate 52; Glucose 154 mg/dL (70-105)
[2022-04-29] MEDS: INSULIN LISPRO 1 UNIT/0.01 ML UNIT SQ SCH ×4 (07:45→21:08)
[2022-04-29 08:14] LABS: INR 2.6 (0.9-1.1); Prothrombin Time 28.9 sec (11.9-14.5)
[2022-04-29] MEDS ORDERED: WARFARIN 5 MG TABLET PO SCH (09:00)
[2022-04-29] MEDS: QUEtiapine 25 MG TABLET PO SCH ×2 (10:04→21:07)
[2022-04-29] MEDS: ALLOPURINOL 100 MG TABLET PO SCH ×2 (10:04→21:07)
[2022-04-29] MEDS: predniSONE 20 MG TABLET PO SCH (10:04)
[2022-04-29] MEDS: CARVEDILOL 12.5 MG TABLET PO SCH ×2 (10:04→17:59)
[2022-04-29] MEDS: CITALOPRAM 20 MG TABLET PO SCH (10:04)
[2022-04-29] MEDS: CALCIUM (OYSTER SHELL) 500 MG TABLET PO SCH ×2 (10:04→21:07)
[2022-04-29] MEDS: FERROUS SULFATE 325 MG TABLET PO SCH (10:04)
[2022-04-29] MEDS: FLUTICASONE PROPIONATE 100 MCG INH SCH ×2 (10:05→21:18)
[2022-04-29] MEDS: FUROSEMIDE 20 MG TABLET PO SCH ×2 (10:05→21:07)
[2022-04-29] MEDS: DOCUSATE SODIUM 100 MG CAPSULE PO SCH ×2 (10:05→21:07)
[2022-04-29] MEDS: AZITHROMYCIN 500 MG in DEXTROSE 5% IN WATER 250 ML IV SCH (10:05)
[2022-04-29] MEDS: LISINOPRIL 10 MG TABLET PO SCH (10:05)
[2022-04-29] MEDS: Tiotropium-Olodaterol [Stiolto Respimat] 2.5-2.5 mcg Inhaler INH SCH (10:05)
[2022-04-29] MEDS: cefTRIAXone 1 GM VIAL IV SCH (10:13)
[2022-04-29] MEDS ORDERED: WARFARIN 5 MG TABLET PO ONE (14:00)
--- NOTE | 2022-04-29 15:31 | Internal Med Progress Note ---
SUBJECTIVE Subjective Patient information: Note initiated : 04/29/22 at 3:27 pm Service Date, if different from initiated Date: [] Patient: Shamar Vila a 81 y/o M admitted on 04/28/22 for SOB/fever. Chief Complaint: [] Interval history: Mr. Vila is a 81 year old M history of gout, COPD, type 2 diabetes mellitus, chronic kidney disease stage III, essential hypertension, mixed dyslipidemia, atrial fibrillation, depressions, cardiomyopathy, presenting with 1 day history of new onset shortness of breath with cough. There was no prior similar episode. Patient is assisted living facility [place] is state resident. Yesterday morning he woke up with acute onset shortness of breath. He is also complaining of productive cough. He is complaining of the respiratory wheezings. He denies any fever, chills, or diaphoresis. He denies any change in appetite. He denies any general body weakness. He denies any GI upset such as nausea vomiting. He does not use oxygen at home facility. Vital signs at ED presentation significant for fever with Tmax 38.1. Heart rate up to the 1 teens beats per minutes. He was started on supplemental nasal cannula oxygen up to 2 L/min. COVID screening negative. Labs otherwise significant for lack of leukocytosis with WBC 9.3. Serum lactic acid 1.1. Procalcitonin level is 0.08. Chest x-ray showing left lower lobe pneumonia versus atelectasis. Admission request is called for COPD exacerbations plus or minus community acquired pneumonia. 04/29: Afebrile overnight. All cultures no growth to date. WBC 11.2. Patient is feeling good this afternoon and he denies any shortness of breath cough or wheezing. He denies any chest pain or tightness. He denies any subjective fever, chills, or diaphoresis. Improving energy level. Continue supplemental oxygen therapy as needed. Continue prednisone and DuoNeb for COPD exacerbations. Continue Rocephin and azithromycin while monitoring culture results. Pending physical therapy evaluation and treatments. Constitutional Vitals: Vital Signs Temp Pulse Resp BP Pulse Ox O2 Del Method O2 Flow Rate 36.7 C 72 20 125/84 93 Room Air 1 04/29/22 12:00 04/29/22 12:04/29/22 12:04/29/22 12:04/29/22 12:00 04/29/22 12:00 04/29/22 03:41 Period Temp Pulse Resp BP Sys/Francois Pulse Ox O2 Del Method O2 Flow Rate Last 24 Hr 36.1 C-36.8 C 64-82 16-24 123-129/75-91 90-98 Nasal Cannula- Room Air 1 Intake and Output 04/29/22 04/29/22 04/29/22 03:59 11:59 19:59 Intake Total 1600 500 250 Output Total 1000 1000 600 Balance 600 -500 -350 Weight 108.771 kg Intake & Output: Intake & Output 04/29/22 04/29/22 04/29/22 03:59 11:59 19:59 Intake Total 1600 500 250 Output Total 1000 1000 600 Balance 600 -500 -350 Weight 108.771 kg Intake: IV 250 Zithromax 500 mg In Dextrose 5% 250 in Water 250 ml @ 250 mls/hr IV Q24H [facility] Rx#:[id number] Oral 1600 500 Output: Void Amount 1000 1000 600 Other: Meal Lunch Percent of Meal Consumed 100% Feeding Ability Independent Urine Appearance Clear Clear Urine Color Yellow Bright Yellow Bright Yellow Urine Odor Strong Normal General appearance: cooperative and no acute distress Head Head exam: Present atraumatic and normal inspection Eye Eye exam: Present normal appearance ENT ENT exam: Present mucous membranes moist, normal exam and normal external ear exam Neck Neck exam: Present normal inspection Respiratory Respiratory exam: Present decreased breath sounds Cardiovascular Cardiovascular exam: Present irregular rhythm GI/Abdominal GI/Abdominal exam: Present normal bowel sounds Back Exam Back exam: Present normal inspection Neurological Exam Neurological exam: Present alert and oriented X3 Skin Skin exam: Present intact and warm OBJ DATA Labs 04/29/22 05:27 04/29/22 05:27 Labs: Abnormal Lab Results 04/29/22 04/29/22 04/29/22 05:27 05:27 05:26 WBC 11.2 H RBC 3.78 L Hgb 10.9 L Hct 33.8 L RDW Neut % (Auto) 89.3 H Lymph % (Auto) 5.9 L Lymph # (Auto) 0.66 L Absolute Neutrophils 9.96 H POC PT PT 28.9 H POC INR INR 2.6 H POC VBG pCO2 at Temp POC VBG HCO3 POC VBG Total CO2 POC VBG Base Excess Sodium 128 L Chloride 92 L BUN 52 H Creatinine 1.3 H Glucose 154 H Calcium 8.5 L Alkaline Phosphatase 120 H NT-Pro-B Natriuret Pep 04/28/22 04/28/22 04/28/22 02:18 00:07 00:07 WBC RBC 4.21 L Hgb 12.1 L Hct 38.0 L RDW 14.6 H Neut % (Auto) 83.6 H Lymph % (Auto) 7.6 L Lymph # (Auto) 0.71 L Absolute Neutrophils POC PT 31.5 H PT POC INR 2.8 H INR POC VBG pCO2 at Temp 51.3 H POC VBG HCO3 30.7 H POC VBG Total CO2 32.0 H POC VBG Base Excess 6.0 H* Sodium Chloride BUN Creatinine Glucose Calcium Alkaline Phosphatase NT-Pro-B Natriuret Pep 04/28/22 04/28/22 00:03 00:03 WBC RBC Hgb Hct RDW Neut % (Auto) Lymph % (Auto) Lymph # (Auto) Absolute Neutrophils POC PT PT POC INR INR POC VBG pCO2 at Temp POC VBG HCO3 POC VBG Total CO2 POC VBG Base Excess Sodium 132 L Chloride 93 L BUN 52 H Creatinine 1.6 H Glucose 111 H Calcium Alkaline Phosphatase 158 H NT-Pro-B Natriuret Pep 516.1 H Meds: Medications Acetaminophen (Acetaminophen 325 Mg Tablet) 650 mg PO Q6HP PRN; Protocol PRN Reason: Per Pain Protocol/Fever > 101 Albuterol Sulfate (Albuterol Sulfate 60 Puff Inhaler) 2 puff INH Q6HP PRN PRN Reason: shortness of breath or wheezing Albuterol/Ipratropium (Ipratropium/Albuterol 3 Ml Ampul.Neb) 3 ml NEB Q6HRT [facility] Last Admin: 04/29/22 12:04 Dose: Not Given Allopurinol (Allopurinol 100 Mg Tablet) 200 mg PO QDAY [facility] Last Admin: 04/29/22 10:04 Dose: 200 mg Allopurinol (Allopurinol 100 Mg Tablet) 100 mg PO [facility] Last Admin: 04/28/22 21:27 Dose: 100 mg Atorvastatin Calcium (Atorvastatin 20 Mg Tablet) 20 mg PO QHS [facility] Last Admin: 04/28/22 21:26 Dose: 20 mg Calcium Carbonate/Glycine (Calcium (Oyster Shell) 500 Mg Tablet) 500 mg PO BID [facility] Last Admin: 04/29/22 10:04 Dose: 500 mg Carvedilol ([facility] 12.5 Mg Tablet) [facility] Last Admin: 04/29/22 10:04 Dose: 12.5 mg Ceftriaxone Sodium (Ceftriaxone 1 Gm Vial) 1 gm IV Q24H [facility] Last Admin: 04/29/22 10:13 Dose: 1 gm Citalopram Hydrobromide (Citalopram 20 Mg Tablet) 20 mg PO QDAY [facility] Last Admin: 04/29/22 10:04 Dose: 20 mg Dextrose (Dextrose 50% 50 Ml Vial) 0 ml IV UD PRN PRN Reason: Per Sliding Scale Diagnostic Test (Pha) (Accu-Chek 1 Each Strip) 1 each FS [facility] Last Admin: 04/29/22 11:57 Dose: 1 each Docusate Sodium (Docusate Sodium 100 Mg Capsule) 100 mg PO BID [facility] Last Admin: 04/29/22 10:05 Dose: 100 mg Ferrous Sulfate (Ferrous Sulfate 325 Mg Tablet) 325 mg PO QDAY [facility] Last Admin: 04/29/22 10:04 Dose: 325 mg Furosemide (Furosemide 20 Mg Tablet) 20 mg PO BID [facility] Last Admin: 04/29/22 10:05 Dose: 20 mg Glucose (Dextrose 31 Gm Oral.Susp) 15 gm PO PRN PRN PRN Reason: Hypoglycemia Guaifenesin (Guaifenesin/Dextromethorphan 5ml Ud Cup) 10 ml PO Q4HP PRN PRN Reason: Cough Last Admin: 04/29/22 10:20 Dose: 10 ml Azithromycin 500 mg/ Dextrose 250 mls @ 250 mls/hr IV Q24H [facility]; Protocol Stop: 04/30/22 10:59 Last Infusion: 04/29/22 12:29 Dose: Infused Insulin Human Lispro (Insulin Lispro 1 Unit/0.01 Ml Unit) 0 unit SQ [facility]; Protocol Last Admin: 04/29/22 12:00 Dose: Not Given Lisinopril (Lisinopril 10 Mg Tablet) 10 mg PO DAILY [facility] Last Admin: 04/29/22 10:05 Dose: 10 mg Ondansetron HCl (Ondansetron 4 Mg/2 Ml Vial) 4 mg IV Q6HP PRN PRN Reason: Nausea And Vomiting Fluticasone Propionate [Flovent Diskus] 100 Mcg Inhaler 1 dose INH BID [facility] Last Admin: 04/29/22 10:05 Dose: 1 dose Ipratropium [place] [Atrovent Hfa] 17 Mcg Inhaler 2 dose INH TIDP PRN PRN Reason: shortness of breath, wheezing Tiotropium- Olodaterol [Stiolto Respimat] 2.5-2.5 Mcg Inhaler 2 dose INH Q24H [facility] Last Admin: 04/29/22 10:05 Dose: 2 dose Prednisone (Prednisone 20 Mg Tablet) 40 mg PO QAMCC [facility] Last Admin: 04/29/22 10:04 Dose: 40 mg Quetiapine Fumarate (Quetiapine 25 Mg Tablet) 25 mg PO BID [facility] Last Admin: 04/29/22 10:04 Dose: 25 mg Senna (Sennosides 1 Tablet) 2 tab PO HS [facility] Last Admin: 04/28/22 21:26 Dose: 2 tab Sodium Chloride (0.9 % Sodium Chloride 10 Ml Syringe) 10 ml IV Q8 [facility] Last Admin: 04/29/22 04:05 Dose: 10 ml Trazodone HCl (Trazodone Hcl 50 Mg Tablet) 25 mg PO HSP PRN PRN Reason: Insomnia Warfarin Sodium (Warfarin Per Pharmacy) 1 order PO UD [facility] A/P Assessment and plan (1) Pneumonia: Status: Acute (2) Acute exacerbation of chronic obstructive pulmonary disease: Status: Acute (3) Atrial fibrillation: Status: Chronic Qualifiers: Atrial fibrillation type: unspecified Qualified Code(s): I48.91 - Unspecified atrial fibrillation (4) Gouty arthropathy: Status: Chronic (5) Hyperlipidemia: Status: Chronic (6) Hypertension, essential, benign: Status: Chronic (7) Type II diabetes mellitus with renal manifestations: Status: Chronic (8) Cardiomyopathy: Status: Chronic (9) Depression: Status: Chronic (10) Hypertension in stage 3 chronic kidney disease due to type 2 diabetes mellitus: Status: Chronic (11) Anemia due to stage 3b chronic kidney disease: Status: Chronic Narrative A/P Narrative: Assessment and Plans: 1. COPD with exacerbation: Inpatient med surg telemetry Supplemental oxygen therapy, titrate to achieve spo2>88-92% Prednisone Zithromax DuoNEB Montelukast Robitussin DM Physical therapy 2. Community acquired pneumonia: Blood culture, no growth to date Serial lactic acid 1.1 Procalcitonin level 0.08 cbc w/ auto diff in the morning to trend WBC Rocephin Zithromax Robitussin DM 3. Gout: Allopurinol 4. T2DM: HgA1c Hold oral hypoglycemics Insulin Lispro SSI AC HS Accu Check AC HS Hypoglycemia protocol Diabetic diet 5. Chronic kidney disease III: Avoid nephrotoxic agents Saline lock CMP in the morning to trend kidney functions 6. Essential hypertension: Currently normotensives Continue home regimen of oral antihypertensives 7. Mixed dyslipidemia: Continue statin therapy 8. Permanent atrial fibrillation: Daily INR, goal 2-3 Warfarin Coreg 9. Depression: Citalopram Seroquel GI ppx: not currently indicated DVT ppx: Warfarin Code status: DNI Prognosis: guarded Disposition: inpatient med surg tele; [place] resident, PT Time Spent With Patient Time: Total time spent is greater than 50% in coordination of care (as documented) at patient's floor/unit and/or counseling patient: Subsequent: Total time with patient: 35 - 49 minutes
[2022-04-29] MEDS: ATORVASTATIN 20 MG TABLET PO SCH (21:07)
[2022-04-29] MEDS: SENNOSIDES 1 TABLET PO SCH (21:07)
[2022-04-30] MEDS: 0.9 % SODIUM CHLORIDE 10 ML SYRINGE IV SCH ×2 (05:52→14:47)
[2022-04-30] MEDS: INSULIN LISPRO 1 UNIT/0.01 ML UNIT SQ SCH ×2 (07:28→12:06)
[2022-04-30 07:29] LABS: INR 2.5 (0.9-1.1); Prothrombin Time 28.4 sec (11.9-14.5)
[2022-04-30 07:38] LABS: Basophils # (Auto) 0.01 K/mcL (0.00-0.30); Basophils % (Auto) 0.1 % (0.0-2.0); Eosinophils # (Auto) 0 K/mcL (0.00-0.70); Eosinophils % (Auto) 0 % (0.0-7.0); Hematocrit 34.4 % (40.1-51.0); Hemoglobin 11.1 g/dL (13.7-17.5); Lymphocytes # (Auto) 0.75 K/mcL (1.50-4.80); Lymphocytes % (Auto) 8.4 % (15.5-49.0); Mean Cell Volume 90.1 fL (80.0-100.0); Mean Corpuscular HGB Conc 32.3 g/dL (31.0-36.0); Mean Platelet Volume 11.4 fL (8.8-12.5); Monocytes % (Auto) 6.7 % (1.0-12.0); Neutrophils % (Auto) 84.4 % (38.0-78.0); Platelet Count 159 K/mcL (140-440); RBC 3.82 M/mcL (4.63-6.08); Red Cell Distribution Width 14.7 % (11.5-14.5)
[2022-04-30 07:50] LABS: ALT/SGPT 34 U/L (<40); AST/SGOT 46 U/L (<40); Albumin 3.5 gm/dL (3.2-5.2); Albumin/Globulin Ratio 1.1 (1.0-2.3); Alkaline Phosphatase 117 U/L (39-117); Bilirubin,Total 0.5 mg/dL (0.1-1.0); Blood Urea Nitrogen 50 mg/dL (8-23); Calcium 8.7 mg/dL (8.6-10.4); Carbon Dioxide 27 mmol/L (22-30); Chloride 93 mmol/L (96-108); Globulin 3.1 gm/dL (2.2-3.7); Glomerular Filtration Rate 52; Glucose 115 mg/dL (70-105)
[2022-04-30] MEDS: IPRATROPIUM/ALBUTEROL 3 ML AMPUL.NEB NEB SCH ×2 (07:50→14:27)
[2022-04-30] MEDS: QUEtiapine 25 MG TABLET PO SCH (10:23)
[2022-04-30] MEDS: CITALOPRAM 20 MG TABLET PO SCH (10:23)
[2022-04-30] MEDS: FUROSEMIDE 20 MG TABLET PO SCH (10:23)
[2022-04-30] MEDS: CARVEDILOL 12.5 MG TABLET PO SCH (10:23)
[2022-04-30] MEDS: predniSONE 20 MG TABLET PO SCH (10:23)
[2022-04-30] MEDS: LISINOPRIL 10 MG TABLET PO SCH (10:23)
[2022-04-30] MEDS: ALLOPURINOL 100 MG TABLET PO SCH (10:23)
[2022-04-30] MEDS: CALCIUM (OYSTER SHELL) 500 MG TABLET PO SCH (10:23)
[2022-04-30] MEDS: DOCUSATE SODIUM 100 MG CAPSULE PO SCH (10:24)
[2022-04-30] MEDS: FERROUS SULFATE 325 MG TABLET PO SCH (10:24)
[2022-04-30] MEDS: cefTRIAXone 1 GM VIAL IV SCH (10:32)
[2022-04-30] MEDS: AZITHROMYCIN 500 MG in DEXTROSE 5% IN WATER 250 ML IV SCH (10:36)
[2022-04-30] MEDS: Tiotropium-Olodaterol [Stiolto Respimat] 2.5-2.5 mcg Inhaler INH SCH (10:38)
[2022-04-30] MEDS: FLUTICASONE PROPIONATE 100 MCG INH SCH (10:38)
--- NOTE | 2022-04-30 12:22 | Discharge Summary ---
Discharge Provider Provider IMPORTANT FOLLOW-UP INFORMATION FOR PCP: Patient information: Note initiated : 04/30/22 at 12:20 pm Service Date, if different from initiated Date: [] Patient: Shamar Vila 81 y/o M admitted on 04/28/22 for SOB/fever. Chief Complaint: [] Date of admission: 04/28/22 03:04 Discharge date: 04/30/22 Primary care physician: Brijesh Ash MD Attending physician on admission: Marcial Gupta Consults: 04/28/22 Consult to Physician [CONS] Stat Comment: Consulting Provider: Marcial Gupta Reason For Exam: Physician to Consult Attending physician on discharge: Marcial Sutherland Pudaryn COURSE Hospital Course Hospital course: Mr. Vila is a 81 year old M history of gout, COPD, type 2 diabetes mellitus, chronic kidney disease stage III, essential hypertension, mixed dyslipidemia, atrial fibrillation, depressions, cardiomyopathy, presenting with 1 day history of new onset shortness of breath with cough. There was no prior similar episode. Patient is assisted living facility [place] is state resident. Yesterday morning he woke up with acute onset shortness of breath. He is also complaining of productive cough. He is complaining of the respiratory wheezings. He denies any fever, chills, or diaphoresis. He denies any change in appetite. He denies any general body weakness. He denies any GI upset such as nausea vomiting. He does not use oxygen at home facility. Vital signs at ED presentation significant for fever with Tmax 38.1. Heart rate up to the 1 teens beats per minutes. He was started on supplemental nasal cannula oxygen up to 2 L/min. COVID screening negative. Labs otherwise significant for lack of leukocytosis with WBC 9.3. Serum lactic acid 1.1. Procalcitonin level is 0.08. Chest x-ray showing left lower lobe pneumonia versus atelectasis. Admission request is called for COPD exacerbations plus or minus community acquired pneumonia. 04/29: Afebrile overnight. All cultures no growth to date. WBC 11.2. Patient is feeling good this afternoon and he denies any shortness of breath cough or wheezing. He denies any chest pain or tightness. He denies any subjective fever, chills, or diaphoresis. Improving energy level. Continue supplemental oxygen therapy as needed. Continue prednisone and DuoNeb for COPD exacerbations. Continue Rocephin and azithromycin while monitoring culture results. Pending physical therapy evaluation and treatments. 04/30: Discharged back to [facility] with home health PT and OT. Rx sent to pharmacy. 2 week PCP follow up appointment made for him. All questions were answered prior to patient being physically discharged. Discharge diagnosis: Pneumonia, COPD exacerbation Time Spent with Patient Time attestation: Total time spent providing and/or coordinating discharge services: Time spent: Greater than 30 minutes EXAM Constitutional Vitals: Temp Pulse Resp BP Pulse Ox O2 Del Method O2 Flow Rate 36.9 C 69 22 136/96 97 Room Air 0.5 04/30/22 07:53 04/30/22 07:53 04/30/22 07:53 04/30/22 07:53 04/30/22 07:53 04/30/22 07:53 04/30/22 07:52 General appearance: cooperative and no acute distress Head Head exam: Present atraumatic and normocephalic Eye Eye exam: Present EOMI and PERRL ENT ENT exam: Present mucous membranes moist, normal exam and normal external ear exam Neck Neck exam: Present normal inspection; Absent lymphadenopathy, tenderness or thyromegaly Respiratory Respiratory exam: Present decreased breath sounds; Absent accessory muscle use, respiratory distress or wheezes Cardiovascular Cardiovascular exam: Present irregular rhythm; Absent JVD GI/Abdominal GI/Abdominal exam: Present normal bowel sounds and soft; Absent organomegaly or tenderness Rectal Rectal exam: Present deferred Extremities Exam Extremities exam: Present full ROM, normal capillary refill and normal inspection; Absent tenderness Neurological Exam Neurological exam: Present alert, CN II-XII intact and oriented X3; Absent motor sensory deficit Psychiatric Psychiatric exam: Present normal affect and normal mood; Absent anxious or depressed Skin Skin exam: Present dry and intact Discharge Data Data Completed and Pending Labs on day of discharge: Labs from last 24 hours 04/30/22 04/30/22 04/30/22 05:19 05:19 05:18 WBC 9.0 RBC 3.82 L Hgb 11.1 L Hct 34.4 L MCV 90.1 MCH 29.1 MCHC 32.3 RDW 14.7 H Plt Count 159 MPV 11.4 Immature Gran % (Auto) 0.4 Neut % (Auto) 84.4 H Lymph % (Auto) 8.4 L [place] % (Auto) 6.7 Eos % (Auto) 0 Baso % (Auto) 0.1 Lymph # (Auto) 0.75 L [place] # (Auto) 0.60 Eos # (Auto) 0 Baso # (Auto) 0.01 Immature Gran # 0.04 Absolute Neutrophils 7.55 PT 28.4 H INR 2.5 H Sodium 128 L Potassium 4.8 Chloride 93 L Carbon Dioxide 27 Anion Gap 8.0 BUN 50 H Creatinine 1.3 H GFR Calculation 52 Glucose 115 H Calcium 8.7 Total Bilirubin 0.5 AST 46 H ALT 34 Alkaline Phosphatase 117 Total Protein 6.6 Albumin 3.5 Globulin 3.1 Albumin/Globulin Ratio 1.1 Preliminary micro results at discharge 04/28/22 09:51 Blood Culture - Preliminary Blood 04/28/22 09:46 Blood Culture - Preliminary Blood Discharge Plan Patient/Caregiver Discharge Instructions Activity: increase activity as tolerated Diet: Consistent Carbohydrate Prescriptions: New dextromethorphan-guaifenesin 10-100 mg/5 mL Syrup 10 ml PO Q4HP PRN (Reason: Cough) Qty: 237 0RF prednisone 20 mg Tablet 40 mg PO QAMCC Qty: 4 0RF amoxicillin-pot clavulanate [Augmentin] 500-125 mg tablet 1 tab PO BID Qty: 14 0RF Continued enalapril maleate 10 mg tablet 10 mg PO QDAY Qty: 90 3RF furosemide 20 mg tablet 20 mg PO BID Qty: 180 3RF Stiolto Respimat 2.5-2.5 mcg/actuation mist 2 puff inhalation Q24H Qty: 4 5RF calcium carbonate [Oyster Shell Calcium] 500 mg calcium (1,250 mg) tablet 500 mg PO BID Qty: 180 1RF ferrous sulfate [FeroSul] 325 mg (65 mg iron) tablet 325 mg PO QDAY Qty: 90 1RF quetiapine [Seroquel] 25 mg tablet 25 mg PO BID Qty: 180 1RF Januvia 50 mg tablet 50 mg PO QDAY Qty: 90 1RF citalopram [Celexa] 20 mg tablet 20 mg PO QDAY Qty: 90 1RF atorvastatin [Lipitor] 20 mg tablet 20 mg PO QHS Qty: 90 1RF Flovent Diskus 100 mcg/actuation blister with device 1 inh inhalation BID Qty: 60 2RF warfarin 2.5 mg tablet 2.5 mg PO .COMPLEX Qty: 90 1RF Protocol: Dose Management Condition: Thursday (Week One) Dose/Route: 7.5 mg Instruction: 1 x 2.5 mg tablet, 1 x 5 mg tablet Condition: Thursday Dose/Route: 5 mg Instruction: 1 x 5 mg tablet Condition: Thursday Dose/Route: 7.5 mg Instruction: 1 x 2.5 mg tablet, 1 x 5 mg tablet Condition: Thursday Dose/Route: 7.5 mg Instruction: 1 x 2.5 mg tablet, 1 x 5 mg tablet Condition: Dose/Route: 7.5 mg Instruction: 1 x 2.5 mg tablet, 1 x 5 mg tablet Condition: Thursday Dose/Route: 7.5 mg Instruction: 1 x 2.5 mg tablet, 1 x 5 mg tablet Condition: Thursday Dose/Route: 7.5 mg Instruction: 1 x 2.5 mg tablet, 1 x 5 mg tablet Condition: Thursday (Week Two) Dose/Route: 7.5 mg Instruction: 1 x 2.5 mg tablet, 1 x 5 mg tablet Condition: Thursday Dose/Route: 5 mg Instruction: 1 x 5 mg tablet Condition: Thursday Dose/Route: 7.5 mg Instruction: 1 x 2.5 mg tablet, 1 x 5 mg tablet Condition: Thursday Dose/Route: 7.5 mg Instruction: 1 x 2.5 mg tablet, 1 x 5 mg tablet Condition: Dose/Route: 7.5 mg Instruction: 1 x 2.5 mg tablet, 1 x 5 mg tablet Condition: Thursday Dose/Route: 7.5 mg Instruction: 1 x 2.5 mg tablet, 1 x 5 mg tablet Condition: Thursday Dose/Route: 7.5 mg Instruction: 1 x 2.5 mg tablet, 1 x 5 mg tablet Protocol Text: Adjustment Start Date: Thursday04/01/22 INR Value: 1.6 INR Date: 04/01/22 Recheck Date: 04/15/22 Rx Instructions: Take 5mg Mondays and 7.5mg the other 6 days acetaminophen 500 mg tablet 500 mg PO Q6H PRN (Reason: for pain) Qty: 30 0RF warfarin 5 mg tablet 7.5 mg PO QDAY 90 Days Qty: 135 1RF Protocol: Dose Management Condition: Thursday (Week One) Dose/Route: 7.5 mg Instruction: 1 x 2.5 mg tablet, 1 x 5 mg tablet Condition: Thursday Dose/Route: 5 mg Instruction: 1 x 5 mg tablet Condition: Thursday Dose/Route: 7.5 mg Instruction: 1 x 2.5 mg tablet, 1 x 5 mg tablet Condition: Thursday Dose/Route: 7.5 mg Instruction: 1 x 2.5 mg tablet, 1 x 5 mg tablet Condition: Dose/Route: 7.5 mg Instruction: 1 x 2.5 mg tablet, 1 x 5 mg tablet Condition: Thursday Dose/Route: 7.5 mg Instruction: 1 x 2.5 mg tablet, 1 x 5 mg tablet Condition: Thursday Dose/Route: 7.5 mg Instruction: 1 x 2.5 mg tablet, 1 x 5 mg tablet Condition: Thursday (Week Two) Dose/Route: 7.5 mg Instruction: 1 x 2.5 mg tablet, 1 x 5 mg tablet Condition: Thursday Dose/Route: 5 mg Instruction: 1 x 5 mg tablet Condition: Thursday Dose/Route: 7.5 mg Instruction: 1 x 2.5 mg tablet, 1 x 5 mg tablet Condition: Thursday Dose/Route: 7.5 mg Instruction: 1 x 2.5 mg tablet, 1 x 5 mg tablet Condition: Dose/Route: 7.5 mg Instruction: 1 x 2.5 mg tablet, 1 x 5 mg tablet Condition: Thursday Dose/Route: 7.5 mg Instruction: 1 x 2.5 mg tablet, 1 x 5 mg tablet Condition: Thursday Dose/Route: 7.5 mg Instruction: 1 x 2.5 mg tablet, 1 x 5 mg tablet Protocol Text: Adjustment Start Date: Thursday04/01/22 INR Value: 1.6 INR Date: 04/01/22 Recheck Date: 04/15/22 Rx Instructions: Take 5mg Thursday and 7.5mg the other 6 days allopurinol 100 mg Tablet 200 mg PO QDAY allopurinol 100 mg Tablet 100 mg PO HS carvedilol [Coreg] 12.5 mg tablet 12.5 mg PO BIDCC albuterol sulfate [Ventolin HFA] 90 mcg/actuation HFA aerosol inhaler 2 puff INHALATION Q6HP PRN (Reason: shortness of breath or wheezing) Atrovent HFA 17 mcg/actuation HFA aerosol inhaler 2 puff inhalation TIDP PRN (Reason: shortness of breath or wheezing) Follow Up Plan Follow up with: Brijesh Ash MD [Primary Care Provider] - Patient Disposition: Home Health Service Prognosis: Fair Rehab Potential: Good I certify that the patient requires SNF services: No Overall status at discharge: patient is progressing back to baseline Discharge Orders: Discharge Order (Routine); Ordered 04/30/22 Ordered By: Marcial Gupta
[2022-04-30] MEDS ORDERED: WARFARIN 3 MG TABLET PO ONE (14:00)
== END 2022-04-30 16:00 | disposition home health service (06) | DRG 194 ==
LOC: ED 23:32 → MEDSUR 04-28 03:04
PROVIDERS: ADMIT Internal Medicine; ATTEND Internal Medicine

== ENCOUNTER 2023-10-29 10:54 | Inpatient (IN) ==
[2023-10-29] MEDS ORDERED: IOPAMIDOL 100 ML BOTTLE IV ONE (10:55)
[2023-10-29 11:46] LABS: Basophils # (Auto) 0.03 K/mcL (0.00-0.30); Basophils % (Auto) 0.3 % (0.0-2.0); Eosinophils # (Auto) 0.07 K/mcL (0.00-0.70); Eosinophils % (Auto) 0.8 % (0.0-7.0); Hematocrit 25.4 % (40.1-51.0); Hemoglobin 8.6 g/dL (13.7-17.5); Lymphocytes # (Auto) 0.86 K/mcL (1.50-4.80); Lymphocytes % (Auto) 9.6 % (15.5-49.0); Mean Cell Volume 90.1 fL (80.0-100.0); Mean Corpuscular HGB Conc 33.9 g/dL (31.0-36.0); Mean Platelet Volume 10.2 fL (8.8-12.5); Monocytes % (Auto) 11.1 % (1.0-12.0); Neutrophils % (Auto) 77.8 % (38.0-78.0); Platelet Count 195 K/mcL (140-440); RBC 2.82 M/mcL (4.63-6.08); Red Cell Distribution Width 13.8 % (11.5-14.5)
[2023-10-29 12:00] LABS: ALT/SGPT 12 U/L (<40); AST/SGOT 26 U/L (<40); Albumin 3.7 gm/dL (3.2-5.2); Albumin/Globulin Ratio 1.4 (1.0-2.3); Alkaline Phosphatase 132 U/L (39-117); Bilirubin,Total 0.9 mg/dL (0.1-1.0); Blood Urea Nitrogen 31 mg/dL (8-23); Calcium 8.9 mg/dL (8.6-10.4); Carbon Dioxide 27 mmol/L (22-30); Chloride 85 mmol/L (96-108); Globulin 2.6 gm/dL (2.2-3.7); Glomerular Filtration Rate 32; Glucose 122 mg/dL (70-105); Potassium 5.4 mmol/L (3.3-5.1); Sodium 122 mmol/L (133-145)
[2023-10-29 12:43] LABS: INR 1.3 (0.9-1.1)
[2023-10-29 13:39] LABS: Hematocrit 24.4 % (40.1-51.0); Hemoglobin 8.4 g/dL (13.7-17.5)
[2023-10-29] MEDS: 0.9 % SODIUM CHLORIDE 1,000 ML IV SCH ×2 (15:45→23:31)
[2023-10-29 16:18] LABS: Appearance,Urine Slightly Cloudy (Clear); Bilirubin,Urine Negative (Negative); Color,Urine Yellow; Culture Indicated,Urine Yes; Glucose,Urine (UA) Negative (Negative); Ketones,Urine Negative (Negative); Leukocyte Esterase,Urine Large /uL (Negative); Nitrate,Urine Negative (Negative); Protein,Urine Negative (Negative); Specific Gravity,Urine <= 1.005 (1.000-1.035); Urine Blood Small ery/mcL (Negative); Urine RBC 6 /hpf (0-3); Urine Squamous Epithelial Cell 0 /hpf (0-4); Urine WBC 10 /hpf (0-4); Urobilinogen,Urine Normal
[2023-10-29 17:36] LABS: Hematocrit 24.3 % (40.1-51.0); Hemoglobin 8.2 g/dL (13.7-17.5)
[2023-10-29 19:26] LABS: Blood Urea Nitrogen 31 mg/dL (8-23); Calcium 8.9 mg/dL (8.6-10.4); Carbon Dioxide 28 mmol/L (22-30); Chloride 87 mmol/L (96-108); Glomerular Filtration Rate 37; Glucose 106 mg/dL (70-105); Potassium 4.8 mmol/L (3.3-5.1); Sodium 124 mmol/L (133-145)
[2023-10-29 22:55] LABS: Hematocrit 23.5 % (40.1-51.0); Hemoglobin 7.9 g/dL (13.7-17.5)
[2023-10-29] MEDS ORDERED: ACETAMINOPHEN 325 MG TABLET PO PRN (23:09)
[2023-10-29] MEDS ORDERED: ONDANSETRON 4 MG/2 ML VIAL IV PRN (23:09)
[2023-10-29] MEDS ORDERED: SENNOSIDES 1 TABLET PO PRN (23:09)
[2023-10-29] MEDS ORDERED: DEXTROSE 31 GM ORAL.SUSP PO PRN (23:09)
[2023-10-29] MEDS ORDERED: DEXTROSE 50% 50 ML VIAL IV PRN (23:09)
[2023-10-29 23:18] LABS: Blood Urea Nitrogen 30 mg/dL (8-23); Calcium 8.7 mg/dL (8.6-10.4); Carbon Dioxide 26 mmol/L (22-30); Chloride 88 mmol/L (96-108); Glomerular Filtration Rate 40; Glucose 108 mg/dL (70-105); Potassium 4.8 mmol/L (3.3-5.1); Sodium 124 mmol/L (133-145)
[2023-10-29] MEDS: 0.9 % SODIUM CHLORIDE 10 ML SYRINGE IV SCH (23:31)
[2023-10-30 00:06] LABS: Sodium, Urine Random < 20 mmol/L
[2023-10-30 00:10] LABS: INR 1.3 (0.9-1.1); Partial Thromboplastin Time 36.8 sec (20.0-37.0); Prothrombin Time 16.8 sec (11.9-14.5)
[2023-10-30 00:14] LABS: Osmolality,Urine 179 mOSM/kg (80-1000)
[2023-10-30 03:34] LABS: Blood Urea Nitrogen 31 mg/dL (8-23); Calcium 8.7 mg/dL (8.6-10.4); Carbon Dioxide 24 mmol/L (22-30); Chloride 89 mmol/L (96-108); Glomerular Filtration Rate 40; Glucose 112 mg/dL (70-105); Potassium 4.8 mmol/L (3.3-5.1); Sodium 124 mmol/L (133-145)
[2023-10-30 05:47] LABS: Basophils # (Auto) 0.03 K/mcL (0.00-0.30); Basophils % (Auto) 0.4 % (0.0-2.0); Eosinophils # (Auto) 0.05 K/mcL (0.00-0.70); Eosinophils % (Auto) 0.7 % (0.0-7.0); Hematocrit 22.5 % (40.1-51.0); Hemoglobin 7.6 g/dL (13.7-17.5); Lymphocytes # (Auto) 0.81 K/mcL (1.50-4.80); Lymphocytes % (Auto) 11.3 % (15.5-49.0); Mean Corpuscular HGB Conc 33.8 g/dL (31.0-36.0); Mean Platelet Volume 9.7 fL (8.8-12.5); Monocytes # (Auto) 0.83 K/mcL (0.10-0.90); Monocytes % (Auto) 11.5 % (1.0-12.0); Neutrophils % (Auto) 75.5 % (38.0-78.0); Platelet Count 190 K/mcL (140-440); Red Cell Distribution Width 13.8 % (11.5-14.5); WBC 7.2 K/mcL (4.5-11.0)
[2023-10-30 06:26] LABS: ALT/SGPT 9 U/L (<40); AST/SGOT 23 U/L (<40); Albumin 3.4 gm/dL (3.2-5.2); Albumin/Globulin Ratio 1.5 (1.0-2.3); Alkaline Phosphatase 120 U/L (39-117); Bilirubin,Direct 0.4 mg/dL (<0.3); Bilirubin,Total 0.9 mg/dL (0.1-1.0); Blood Urea Nitrogen 31 mg/dL (8-23); Calcium 8.6 mg/dL (8.6-10.4); Carbon Dioxide 26 mmol/L (22-30); Chloride 89 mmol/L (96-108); Globulin 2.3 gm/dL (2.2-3.7); Glomerular Filtration Rate 40; Glucose 116 mg/dL (70-105); Lactate Dehydrogenase 202 U/L (135-225); Phosphorous 3.8 mg/dL (2.5-4.5); Potassium 4.7 mmol/L (3.3-5.1); Sodium 124 mmol/L (133-145); Triglycerides 51 mg/dL (<150); Uric Acid 5.9 mg/dL (2.5-8.0)
[2023-10-30] MEDS: 0.9 % SODIUM CHLORIDE 1,000 ML IV SCH (07:59)
[2023-10-30] MEDS: INSULIN LISPRO 1 UNIT/0.01 ML UNIT SQ SCH (08:00)
[2023-10-30] MEDS: SODIUM CHLORIDE 1 GM TABLET PO SCH (09:20)
[2023-10-30] MEDS: CARVEDILOL 3.125 MG TABLET PO SCH (09:20)
[2023-10-30 10:36] LABS: Blood Urea Nitrogen 31 mg/dL (8-23); Calcium 8.5 mg/dL (8.6-10.4); Carbon Dioxide 26 mmol/L (22-30); Chloride 91 mmol/L (96-108); Glomerular Filtration Rate 40; Glucose 165 mg/dL (70-105); Potassium 4.6 mmol/L (3.3-5.1); Sodium 125 mmol/L (133-145)
[2023-10-30] MEDS: 0.9 % SODIUM CHLORIDE 250 ML IV SCH (11:22)
[2023-10-30 15:02] LABS: Hematocrit 24.7 % (40.1-51.0); Hemoglobin 8.3 g/dL (13.7-17.5)
[2023-10-30] MEDS: Tiotropium-Olodaterol [Stiolto Respimat] 2.5-2.5 INH SCH (15:04)
[2023-10-30 15:17] LABS: Blood Urea Nitrogen 33 mg/dL (8-23); Calcium 8.7 mg/dL (8.6-10.4); Carbon Dioxide 27 mmol/L (22-30); Chloride 93 mmol/L (96-108); Glomerular Filtration Rate 37; Glucose 106 mg/dL (70-105); Potassium 4.7 mmol/L (3.3-5.1); Sodium 127 mmol/L (133-145)
[2023-10-30] MEDS: IPRATROPIUM/ALBUTEROL 3 ML AMPUL.NEB NEB PRN (19:56)
[2023-10-30] MEDS: ATORVASTATIN 20 MG TABLET PO SCH (21:06)
[2023-10-30] MEDS: BUDESONIDE INH SCH (21:07)
[2023-10-30] MEDS: QUEtiapine 25 MG TABLET PO SCH (21:07)
[2023-10-30] MEDS: CITALOPRAM 20 MG TABLET PO SCH (21:07)
[2023-10-30 22:51] LABS: Hematocrit 25.1 % (40.1-51.0); Hemoglobin 8.4 g/dL (13.7-17.5)
[2023-10-31 00:48] LABS: Hematocrit 23.9 % (40.1-51.0)
[2023-10-31 06:48] LABS: Basophils # (Auto) 0.03 K/mcL (0.00-0.30); Basophils % (Auto) 0.4 % (0.0-2.0); Eosinophils # (Auto) 0.09 K/mcL (0.00-0.70); Eosinophils % (Auto) 1.1 % (0.0-7.0); Hematocrit 25.9 % (40.1-51.0); Hemoglobin 8.6 g/dL (13.7-17.5); Lymphocytes # (Auto) 1.59 K/mcL (1.50-4.80); Lymphocytes % (Auto) 19.5 % (15.5-49.0); Mean Cell Volume 91.8 fL (80.0-100.0); Mean Corpuscular HGB Conc 33.2 g/dL (31.0-36.0); Mean Platelet Volume 9.9 fL (8.8-12.5); Monocytes # (Auto) 1.12 K/mcL (0.10-0.90); Monocytes % (Auto) 13.7 % (1.0-12.0); Neutrophils % (Auto) 64.4 % (38.0-78.0); Platelet Count 191 K/mcL (140-440); RBC 2.82 M/mcL (4.63-6.08); Red Cell Distribution Width 14.2 % (11.5-14.5); WBC 8.2 K/mcL (4.5-11.0)
[2023-10-31 07:23] LABS: ALT/SGPT 10 U/L (<40); AST/SGOT 24 U/L (<40); Albumin 3.6 gm/dL (3.2-5.2); Albumin/Globulin Ratio 1.4 (1.0-2.3); Alkaline Phosphatase 130 U/L (39-117); Bilirubin,Direct 0.4 mg/dL (<0.3); Bilirubin,Total 0.9 mg/dL (0.1-1.0); Blood Urea Nitrogen 35 mg/dL (8-23); Calcium 9.1 mg/dL (8.6-10.4); Carbon Dioxide 25 mmol/L (22-30); Chloride 96 mmol/L (96-108); Globulin 2.6 gm/dL (2.2-3.7); Glomerular Filtration Rate 37; Glucose 118 mg/dL (70-105); Lactate Dehydrogenase 149 U/L (135-225); Phosphorous 4.7 mg/dL (2.5-4.5); Potassium 4.7 mmol/L (3.3-5.1); Sodium 132 mmol/L (133-145); Triglycerides 36 mg/dL (<150); Uric Acid 5.6 mg/dL (2.5-8.0)
[2023-10-31] MEDS: ALLOPURINOL 100 MG TABLET PO SCH (08:53)
[2023-10-31] MEDS: MULTIVIT,THER IRON,CA,FA & MIN 1 TABLET PO SCH (08:53)
[2023-10-31 14:11] LABS: Hematocrit 25.1 % (40.1-51.0); Hemoglobin 8.2 g/dL (13.7-17.5)
[2023-11-01 06:54] LABS: Basophils # (Auto) 0.03 K/mcL (0.00-0.30); Basophils % (Auto) 0.4 % (0.0-2.0); Eosinophils # (Auto) 0.12 K/mcL (0.00-0.70); Eosinophils % (Auto) 1.5 % (0.0-7.0); Hematocrit 26.2 % (40.1-51.0); Hemoglobin 8.4 g/dL (13.7-17.5); Lymphocytes # (Auto) 0.95 K/mcL (1.50-4.80); Lymphocytes % (Auto) 11.6 % (15.5-49.0); Mean Cell Volume 95.6 fL (80.0-100.0); Mean Corpuscular HGB Conc 32.1 g/dL (31.0-36.0); Mean Platelet Volume 9.5 fL (8.8-12.5); Monocytes % (Auto) 12.2 % (1.0-12.0); Neutrophils % (Auto) 73.6 % (38.0-78.0); Platelet Count 197 K/mcL (140-440); RBC 2.74 M/mcL (4.63-6.08); Red Cell Distribution Width 14.4 % (11.5-14.5); WBC 8.2 K/mcL (4.5-11.0)
[2023-11-01 07:02] LABS: ALT/SGPT 13 U/L (<40); AST/SGOT 31 U/L (<40); Albumin 3.6 gm/dL (3.2-5.2); Albumin/Globulin Ratio 1.4 (1.0-2.3); Alkaline Phosphatase 130 U/L (39-117); Bilirubin,Direct 0.4 mg/dL (<0.3); Bilirubin,Total 0.9 mg/dL (0.1-1.0); Blood Urea Nitrogen 32 mg/dL (8-23); Calcium 9.5 mg/dL (8.6-10.4); Carbon Dioxide 28 mmol/L (22-30); Chloride 109 mmol/L (96-108); Globulin 2.6 gm/dL (2.2-3.7); Glomerular Filtration Rate 47; Glucose 125 mg/dL (70-105); Lactate Dehydrogenase 259 U/L (135-225); Phosphorous 4.9 mg/dL (2.5-4.5); Potassium 6.3 mmol/L (3.3-5.1); Sodium 143 mmol/L (133-145); Triglycerides 41 mg/dL (<150); Uric Acid 5.1 mg/dL (2.5-8.0)
[2023-11-01 07:49] LABS: INR 1.1 (0.9-1.1); Prothrombin Time 15.4 sec (11.9-14.5)
[2023-11-01 10:01] LABS: Potassium 5.4 mmol/L (3.3-5.1)
[2023-11-01] MEDS ORDERED: IOPAMIDOL 100 ML BOTTLE IV ONE (11:40)
[2023-11-01] MEDS: SODIUM ZIRCONIUM CYCLOSILICATE 10 GM PACKET PO ONE (11:52)
[2023-11-01] MEDS: LACTATED RINGERS 1,000 ML IV SCH (11:52)
[2023-11-02 05:46] LABS: Basophils # (Auto) 0.03 K/mcL (0.00-0.30); Basophils % (Auto) 0.3 % (0.0-2.0); Eosinophils # (Auto) 0.12 K/mcL (0.00-0.70); Eosinophils % (Auto) 1.4 % (0.0-7.0); Hematocrit 25.6 % (40.1-51.0); Lymphocytes # (Auto) 0.97 K/mcL (1.50-4.80); Mean Cell Volume 97.3 fL (80.0-100.0); Mean Corpuscular HGB Conc 31.3 g/dL (31.0-36.0); Mean Platelet Volume 9.2 fL (8.8-12.5); Monocytes # (Auto) 0.89 K/mcL (0.10-0.90); Monocytes % (Auto) 10.1 % (1.0-12.0); Neutrophils % (Auto) 76.7 % (38.0-78.0); Platelet Count 206 K/mcL (140-440); RBC 2.63 M/mcL (4.63-6.08); WBC 8.8 K/mcL (4.5-11.0)
[2023-11-02 06:09] LABS: ALT/SGPT 8 U/L (<40); AST/SGOT 27 U/L (<40); Albumin 3.6 gm/dL (3.2-5.2); Albumin/Globulin Ratio 1.3 (1.0-2.3); Alkaline Phosphatase 129 U/L (39-117); Bilirubin,Direct 0.5 mg/dL (<0.3); Bilirubin,Total 1.2 mg/dL (0.1-1.0); Blood Urea Nitrogen 28 mg/dL (8-23); Calcium 9.8 mg/dL (8.6-10.4); Carbon Dioxide 28 mmol/L (22-30); Chloride 105 mmol/L (96-108); Globulin 2.7 gm/dL (2.2-3.7); Glomerular Filtration Rate 51; Glucose 123 mg/dL (70-105); Lactate Dehydrogenase 168 U/L (135-225); Phosphorous 4.6 mg/dL (2.5-4.5); Potassium 5.1 mmol/L (3.3-5.1); Sodium 140 mmol/L (133-145); Triglycerides 44 mg/dL (<150); Uric Acid 4.9 mg/dL (2.5-8.0)
[2023-11-02 06:17] LABS: INR 1.1 (0.9-1.1); Prothrombin Time 14.4 sec (11.9-14.5)
[2023-11-02] MEDS: POLYETHYLENE GLYCOL 3350 17 GM PACKET PO PRN (17:23)
[2023-11-03 06:08] LABS: Basophils # (Auto) 0.02 K/mcL (0.00-0.30); Basophils % (Auto) 0.2 % (0.0-2.0); Eosinophils # (Auto) 0.15 K/mcL (0.00-0.70); Eosinophils % (Auto) 1.8 % (0.0-7.0); Hematocrit 26.4 % (40.1-51.0); Hemoglobin 8.3 g/dL (13.7-17.5); Lymphocytes # (Auto) 0.99 K/mcL (1.50-4.80); Lymphocytes % (Auto) 11.9 % (15.5-49.0); Mean Cell Volume 97.1 fL (80.0-100.0); Mean Corpuscular HGB Conc 31.4 g/dL (31.0-36.0); Mean Platelet Volume 9.2 fL (8.8-12.5); Monocytes # (Auto) 0.97 K/mcL (0.10-0.90); Monocytes % (Auto) 11.6 % (1.0-12.0); Platelet Count 221 K/mcL (140-440); RBC 2.72 M/mcL (4.63-6.08); WBC 8.4 K/mcL (4.5-11.0)
[2023-11-03 06:33] LABS: ALT/SGPT 12 U/L (<40); AST/SGOT 33 U/L (<40); Albumin 3.5 gm/dL (3.2-5.2); Albumin/Globulin Ratio 1.2 (1.0-2.3); Alkaline Phosphatase 134 U/L (39-117); Bilirubin,Direct 0.5 mg/dL (<0.3); Bilirubin,Total 1.2 mg/dL (0.1-1.0); Blood Urea Nitrogen 34 mg/dL (8-23); Calcium 9.6 mg/dL (8.6-10.4); Carbon Dioxide 29 mmol/L (22-30); Chloride 104 mmol/L (96-108); Globulin 2.9 gm/dL (2.2-3.7); Glomerular Filtration Rate 51; Glucose 115 mg/dL (70-105); Lactate Dehydrogenase 192 U/L (135-225); Phosphorous 4.3 mg/dL (2.5-4.5); Sodium 140 mmol/L (133-145); Triglycerides 50 mg/dL (<150); Uric Acid 4.5 mg/dL (2.5-8.0)
[2023-11-03] MEDS: FUROSEMIDE 20 MG TABLET PO SCH (08:12)
[2023-11-03] MEDS: LACTATED RINGERS 1,000 ML IV SCH (08:13)
[2023-11-03] MEDS ORDERED: IOPAMIDOL 100 ML BOTTLE IV ONE (08:49)
[2023-11-03] MEDS ORDERED: ALLOPURINOL 100 MG TABLET PO SCH (09:00)
[2023-11-03] MEDS: BUDESONIDE 0.5 MG/2 ML AMPUL.NEB NEB SCH (12:25)
[2023-11-04 06:03] LABS: Basophils # (Auto) 0.03 K/mcL (0.00-0.30); Basophils % (Auto) 0.4 % (0.0-2.0); Eosinophils # (Auto) 0.13 K/mcL (0.00-0.70); Eosinophils % (Auto) 1.6 % (0.0-7.0); Hemoglobin 8.6 g/dL (13.7-17.5); Lymphocytes # (Auto) 0.86 K/mcL (1.50-4.80); Lymphocytes % (Auto) 10.5 % (15.5-49.0); Mean Cell Volume 95.7 fL (80.0-100.0); Mean Corpuscular HGB Conc 31.9 g/dL (31.0-36.0); Mean Platelet Volume 9.1 fL (8.8-12.5); Monocytes # (Auto) 0.74 K/mcL (0.10-0.90); Platelet Count 239 K/mcL (140-440); RBC 2.82 M/mcL (4.63-6.08); Red Cell Distribution Width 14.9 % (11.5-14.5); WBC 8.2 K/mcL (4.5-11.0)
[2023-11-04 06:49] LABS: ALT/SGPT 15 U/L (<40); AST/SGOT 34 U/L (<40); Albumin 3.6 gm/dL (3.2-5.2); Albumin/Globulin Ratio 1.2 (1.0-2.3); Alkaline Phosphatase 133 U/L (39-117); Bilirubin,Direct 0.7 mg/dL (<0.3); Bilirubin,Total 1.6 mg/dL (0.1-1.0); Blood Urea Nitrogen 32 mg/dL (8-23); Calcium 9.7 mg/dL (8.6-10.4); Carbon Dioxide 28 mmol/L (22-30); Chloride 103 mmol/L (96-108); Glomerular Filtration Rate 56; Glucose 123 mg/dL (70-105); Lactate Dehydrogenase 213 U/L (135-225); Phosphorous 3.9 mg/dL (2.5-4.5); Potassium 4.8 mmol/L (3.3-5.1); Sodium 141 mmol/L (133-145); Triglycerides 55 mg/dL (<150); Uric Acid 4.5 mg/dL (2.5-8.0)
[2023-11-04] MEDS: APIXABAN 5 MG TABLET PO SCH (09:28)
[2023-11-05 06:08] LABS: Basophils # (Auto) 0.04 K/mcL (0.00-0.30); Basophils % (Auto) 0.6 % (0.0-2.0); Eosinophils # (Auto) 0.16 K/mcL (0.00-0.70); Eosinophils % (Auto) 2.3 % (0.0-7.0); Hematocrit 28.5 % (40.1-51.0); Lymphocytes # (Auto) 0.95 K/mcL (1.50-4.80); Lymphocytes % (Auto) 13.6 % (15.5-49.0); Mean Cell Volume 96.6 fL (80.0-100.0); Mean Corpuscular HGB Conc 31.6 g/dL (31.0-36.0); Mean Platelet Volume 9.1 fL (8.8-12.5); Monocytes # (Auto) 0.73 K/mcL (0.10-0.90); Monocytes % (Auto) 10.4 % (1.0-12.0); Neutrophils % (Auto) 72.5 % (38.0-78.0); Platelet Count 240 K/mcL (140-440); RBC 2.95 M/mcL (4.63-6.08)
[2023-11-05 06:36] LABS: ALT/SGPT 11 U/L (<40); AST/SGOT 36 U/L (<40); Albumin 3.6 gm/dL (3.2-5.2); Albumin/Globulin Ratio 1.2 (1.0-2.3); Alkaline Phosphatase 130 U/L (39-117); Bilirubin,Direct 0.7 mg/dL (<0.3); Bilirubin,Total 1.7 mg/dL (0.1-1.0); Blood Urea Nitrogen 34 mg/dL (8-23); Calcium 9.7 mg/dL (8.6-10.4); Carbon Dioxide 32 mmol/L (22-30); Chloride 104 mmol/L (96-108); Globulin 2.9 gm/dL (2.2-3.7); Glomerular Filtration Rate 56; Glucose 123 mg/dL (70-105); Lactate Dehydrogenase 285 U/L (135-225); Phosphorous 3.8 mg/dL (2.5-4.5); Potassium 4.5 mmol/L (3.3-5.1); Sodium 145 mmol/L (133-145); Triglycerides 57 mg/dL (<150); Uric Acid 4.8 mg/dL (2.5-8.0)
[2023-11-05] MEDS ORDERED: IOPAMIDOL 100 ML BOTTLE IV ONE (09:29)
[2023-11-05] MEDS: BENZONATATE 100 MG CAPSULE PO PRN (10:19)
[2023-11-06 05:53] LABS: Basophils # (Auto) 0.05 K/mcL (0.00-0.30); Basophils % (Auto) 0.4 % (0.0-2.0); Eosinophils % (Auto) 1.8 % (0.0-7.0); Hematocrit 29.1 % (40.1-51.0); Hemoglobin 9.3 g/dL (13.7-17.5); Lymphocytes # (Auto) 0.86 K/mcL (1.50-4.80); Lymphocytes % (Auto) 7.6 % (15.5-49.0); Mean Platelet Volume 9.3 fL (8.8-12.5); Monocytes # (Auto) 0.98 K/mcL (0.10-0.90); Monocytes % (Auto) 8.7 % (1.0-12.0); Neutrophils % (Auto) 81.1 % (38.0-78.0); Platelet Count 273 K/mcL (140-440); RBC 3.03 M/mcL (4.63-6.08); Red Cell Distribution Width 15.3 % (11.5-14.5); WBC 11.3 K/mcL (4.5-11.0)
[2023-11-06 06:42] LABS: ALT/SGPT 17 U/L (<40); AST/SGOT 41 U/L (<40); Albumin 3.7 gm/dL (3.2-5.2); Albumin/Globulin Ratio 1.2 (1.0-2.3); Alkaline Phosphatase 141 U/L (39-117); Bilirubin,Direct 0.8 mg/dL (<0.3); Blood Urea Nitrogen 33 mg/dL (8-23); Calcium 9.7 mg/dL (8.6-10.4); Carbon Dioxide 34 mmol/L (22-30); Chloride 101 mmol/L (96-108); Glomerular Filtration Rate 51; Glucose 117 mg/dL (70-105); Lactate Dehydrogenase 286 U/L (135-225); Phosphorous 3.9 mg/dL (2.5-4.5); Potassium 4.1 mmol/L (3.3-5.1); Sodium 144 mmol/L (133-145); Triglycerides 66 mg/dL (<150); Uric Acid 4.8 mg/dL (2.5-8.0)
[2023-11-06] MEDS: CARVEDILOL 3.125 MG TABLET PO SCH (07:53)
[2023-11-06] MEDS ORDERED: METOPROLOL TARTRATE 5 MG/5 ML VIAL IV PRN (08:25)
[2023-11-06] MEDS: FUROSEMIDE 40 MG/4 ML VIAL IV ONE (08:44)
== END 2023-11-06 12:30 | DRG 605 ==
LOC: ED 10:54 → ICU 23:05
PROVIDERS: ADMIT Student in an Organized Health Care Education/Training Program; ATTEND Internal Medicine